=== PATIENT | male | born 1970 | race African-American/Black ===

== ENCOUNTER 2019-06-29 02:45 | Inpatient (IN) | payer OTHER ==
--- NOTE | 2019-06-29 02:55 | PDOC ---
History of Present Illness - General Stated Complaint: CHILLS,PAIN Time Seen by Provider: 06/29/19 02:54 History Source: Patient Exam Limitations: No Limitations - History of Present Illness Initial Comments: Pt is a 48 yo M, with no significant PMH, who presents with subjective fever, generalized fatigue, productive cough, and sore throat. Pt states his symptoms started ~1 week ago after returning from vacation in [place], and his symptoms have worsened, despite OTC medications (tylenol, motrin, advil cold/ sinus). Pt also endorses a few episodes of NBNB vomiting throughout the week with associated anorexia. Pt denies any new sexual contacts. Pt denies neck stiffness, photophobia, insect bites, headache, vision changes, syncope, chest pain, palpitations, SOB, abdominal pain, urinary symptoms, diarrhea/constipation , or leg swelling. Allergies: NKDA PCP: None Social: Pt denies any cigarette, alcohol, or drug use. Pt denies any sick contacts. No international travel. Surgical: no relevant history. Family: no relevant history. 06/29/19 06:55 07/02/19 08:04 Past History - Travel Traveled outside of the country in the last 30 days: No Close contact w/someone who was outside of country & ill: No - Past Medical History Allergies/Adverse Reactions: Allergies Allergy/AdvReac Type Severity Reaction Status Date / Time No Known Allergies Allergy Verified 06/29/19 06:18 Home Medications: Ambulatory Orders NK [No Known Home Medication] 06/29/19 Review of Systems - Review of Systems Able to Perform ROS?: Yes Is the patient limited Ivorian proficient: No Constitutional: Yes: Chills, Diaphoresis, Fever, Loss of Appetite, Malaise, Weight Stable. No: Night Sweats, Weakness HEENTM: Yes: Throat Pain. No: Blurred Vision, Double Vision, Nose Congestion, Throat Swelling, Difficulty Swallowing Respiratory: Yes: Cough, Shortness of Breath, SOB with Exertion, SOB at Rest. No: Orthopnea, Wheezing, Productive cough, Hemoptysis Cardiac (ROS): No: Chest Pain, Edema, Irregular Heart Rate, Lightheadedness, Palpitations, Syncope, Chest Tightness ABD/GI: Yes: Nausea, Poor Appetite, Vomiting. No: Constipated, Diarrhea, Poor Fluid Intake, Abdominal cramping : No: Burning, Dysuria, Frequency, Pain, Urgency, Testicular Pain Musculoskeletal: Yes: Muscle Pain. No: Back Pain, Joint Pain, Muscle Weakness Integumentary: No: Change in Color, Rash Neurological: No: Headache, Weakness, Unsteady Gait, Dizziness Psychiatric: No: Sleep Pattern Change, Change in Appetite Endocrine: No: Increased Urine, Change in Weight Hematologic/Lymphatic: No: Anemia, Blood Clots, Easy Bleeding, Easy Bruising All Other Systems: Reviewed and Negative *Physical Exam - Physical Exam Comments: Febrile, tachycardic. Pt sounds out of breath when speaking in full sentences and moving on the bed. Appears diaphoretic and ill. Obese body habitus. Pt alert and oriented x3. supervisor lime generally intact, muscular strength and sensation intact. No midline spinal tenderness, step-offs, or crepitus. No neck stiffness or tenderness with neck movements. Head normocephalic, atraumatic. Eyes PERRLA, EOMI. Does not withdraw from light source. Oropharynx with significant erythema, tonsillar edema, and b/l exudates. No LAD b/l. No nasal congestion, hearing intact. Clear heart sounds, S1/S2, no JVD, b/l pedal edema, or heart murmur. Clear lung sounds, no respiratory distress, wheezes, crackles, or accessory muscle use. No abdominal or CVA tenderness to palpation, no rebound, no guarding. Abdomen soft, non-distended, and with normoactive bowel sounds. Skin without jaundice or rash. 06/29/19 06:32 ED Treatment Course - LABORATORY CBC & Chemistry Diagram: 07/01/19 07:40 07/02/19 06:00 Medical Decision Making - Medical Decision Making Pt was seen at bedside, also will be seen by attending Dr. Pearl. Pt presenting with fever, tachycardia, dry cough, anorexia, fatigue, and throat pain x1 week after traveling to [place]. Pt denies new sexual contacts, but has some symptoms consistent with acute HIV infection. Throat exudates could be thrush vs strep. Will evaluate with sepsis w/u labs, EKG, chest x-ray. Rapid strep, influenza, and HIV tests ordered. Provided 2 L IV NS, IV ofirmev. Will continue to reassess pt and monitor for symptomatic improvement. ECG: Sinus tachycardia. No TWIs or significant ST segment changes. No prior ECG. 06/29/19 06:33 CBC WNL CMP with elevated BUN/Cr and LFTs -- hepatitis vs fatty liver? Providing IVF. Strep positive Chest x-ray with L lower pneumonia -- providing ceftriaxone and azithromycin to cover for strep and pneumonia Pt admitted to hospitalist team (Dr. Walker) for further work-up and IV abx Pt continues to desaturate to low 90s% when speaking in full sentences, even when on 3L O2 NC. 06/29/19 06:36 07/02/19 08:07 *DC/Admit/Observation/Transfer Diagnosis at time of Disposition: Strep throat, Hypoxia Left lower lobe pneumonia Qualifiers: Pneumonia type: due to unspecified organism Qualified Code(s): J18.1 - Lobar pneumonia, unspecified organism - Discharge Dispostion Condition at time of disposition: Stable Decision to Admit order: Yes - Referrals - Patient Instructions - Post Discharge Activity
[2019-06-29 03:16] VITALS: BMI 31.8
--- NOTE | 2019-06-29 03:24 | PDOC ---
Attending Attestation - Resident Resident Name: BreonnaCady - ED Attending Attestation I have performed the following: I have examined & evaluated the patient, The case was reviewed & discussed with the resident, I agree w/resident's findings & plan, Exceptions are as noted - HPI HPI: 06/29/19 07:23 48M denies pmh here with a week of f/c body aches, sore throat. No coughing, sob, chest pain. - Physicial Exam PE: 06/29/19 07:24 Agree with details of exam as documented by resident L sided crackles - Medical Decision Making 06/29/19 07:24 48M here with febrile illness, consider pharyngitis, consider pna f/u labs, cxr, ekg ANGELA +strep pharyngitis +L sided infiltrate admit for treatment
[2019-06-29] MEDS ORDERED: ACETAMINOPHEN 1000 MG/100 ML VIAL (NON FORMULARY) IVPB ONE (04:11)
[2019-06-29] MEDS ORDERED: SODIUM CHLORIDE 1,000 ML IV STA ×2 (04:12→05:16)
[2019-06-29] MEDS ORDERED: ACETAMINOPHEN INJECTION 100 ML IVPB ONE (04:21)
[2019-06-29 04:51] LABS: BASO % 0.1 % (0-2.0); EOS % 0.1 % (0-4.5); HEMATOCRIT 43.6 % (35.4-49); HEMOGLOBIN 14.8 GM/dL (11.7-16.9); LYMPH % 13.3 % (8-40); MCH 28.6 pg (25.7-33.7); MCHC 34.1 g/dl (32.0-35.9); MEAN PLT VOLUME 10.2 fl (7.5-11.1); MONO % 12.2 % (3.8-10.2); NEUT % 74.3 % (42.8-82.8); PLATELET COUNT 139 K/MM3 (134-434); RBC 5.19 M/mm3 (4.00-5.60); RDW 14.1 % (11.9-15.9); WHITE BLOOD COUNT 7.2 K/mm3 (4.0-10.0)
[2019-06-29 04:57] LABS: EPI CELLS 2.1 /HPF (0-5/HPF); HYALINE CASTS 18 /lpf (0-8); URINE APPEARANCE CLOUDY; URINE BACTERIA 1.2 /hpf (NEGATIVE); URINE BILIRUBIN 1+ (NEGATIVE); URINE COLOR DK YELLOW; URINE GLUCOSE (UA) NEGATIVE (NEGATIVE); URINE KETONE NEGATIVE (NEGATIVE); URINE LEUK ESTERASE NEGATIVE (NEGATIVE); URINE NITRITE NEGATIVE (NEGATIVE); URINE PROTEIN 1+ (NEGATIVE); URINE WBC 3 /hpf (0-5)
[2019-06-29 05:06] LABS: URINE RBC 3.6 /hpf (0-4)
[2019-06-29 05:13] LABS: ALBUMIN 3.2 g/dl (3.4-5.0); BILIRUBIN,TOTAL 2.2 mg/dL (0.2-1); CREATININE 2.1 mg/dL (0.55-1.3); POTASSIUM 4.6 mmol/L (3.5-5.1); TOT PROT 7.8 g/dl (6.4-8.2)
[2019-06-29] MEDS ORDERED: AZITHROMYCIN IVPB 500 MG in DEXTROSE 5%-WATER - 250 ML IVPB ONE (05:15)
[2019-06-29] MEDS ORDERED: CEFTRIAXONE 1,000 MG in DEXTROSE 5%-WATER - 50 ML IVPB ONE (05:15)
[2019-06-29] MEDS ORDERED: AZITHROMYCIN IVPB 500 MG/250 ML BAG IVPB ONE (05:18)
--- NOTE | 2019-06-29 06:02 | HP ---
CHIEF COMPLAINT: fever, body aches, and chills PCP: saw a Dr. Mesa 2 years ago, unsure which one HISTORY OF PRESENT ILLNESS: Patient is a 48 y/o male with no past medical history who presents for a week of chills, fevers, and body aches. Patient was recently at [place] for work when he returned last . Since then He has been having symptoms. He has been trying to rest, but it has not made him feel better. He denies any past medical history or everyday medication use. Patient denies any coughing, sputum production, chest pain, or difficulty breathing. Patient denies any recent sick contacts. Patient works as a DJ. Patient reports he has two small episodes of vomiting throughout the week without blood. He has been having poor po and oral intake. Patient was sexually active a month and a half ago and is active with women. Denies any past history of STD's. ER course was notable for: (1)Cef, Azithromycin (2) (3) Recent Travel: [place] last week PAST MEDICAL HISTORY: denies PAST SURGICAL HISTORY: R hand surgery Social History: Smoking: never Alcohol: socially, two beers a week Drugs: denies Family History: mother: diabetes, father: HTN Allergies No Known Allergies Allergy (Verified 06/29/19 03:10) HOME MEDICATIONS: REVIEW OF SYSTEMS CONSTITUTIONAL: fever, chills, generalized weakness Absent: diaphoresis,malaise, loss of appetite, weight change HEENT: Absent: rhinorrhea, nasal congestion, throat pain, throat swelling, difficulty swallowing, mouth swelling, ear pain, eye pain, visual changes CARDIOVASCULAR: Absent: chest pain, syncope, palpitations, irregular heart rate, lightheadedness , peripheral edema RESPIRATORY: Absent: cough, shortness of breath, dyspnea with exertion, orthopnea, wheezing, stridor, hemoptysis GASTROINTESTINAL: Absent: abdominal pain, abdominal distension, nausea, vomiting, diarrhea, constipation, melena, hematochezia GENITOURINARY: Absent: dysuria, frequency, urgency, hesitancy, hematuria, flank pain, genital pain MUSCULOSKELETAL: Absent: myalgia, arthralgia, joint swelling, back pain, neck pain SKIN: Absent: rash, itching, pallor HEMATOLOGIC/IMMUNOLOGIC: Absent: easy bleeding, easy bruising, lymphadenopathy, frequent infections ENDOCRINE: Absent: unexplained weight gain, unexplained weight loss, heat intolerance, cold intolerance NEUROLOGIC: Absent: headache, focal weakness or paresthesias, dizziness, unsteady gait, seizure, mental status changes, bladder or bowel incontinence PSYCHIATRIC: Absent: anxiety, depression, suicidal or homicidal ideation, hallucinations. PHYSICAL EXAMINATION Vital Signs - 24 hr 06/29/19 06/29/19 06/29/19 02:58 03:05 05:30 Temperature 102.8 F H 98 F Pulse Rate 111 H Respiratory 18 Rate Blood Pressure 113/66 O2 Sat by Pulse 93 L 95 Oximetry (%) GENERAL: Awake, alert, and fully oriented, in no acute distress. Obese male HEAD: Normal with no signs of trauma. EYES: Pupils equal, round and reactive to light, extraocular movements intact, R eye deviation at baseline EARS, NOSE, THROAT: multiple white exudates on pharynx LUNGS: no accessory muscle use, crackles left side HEART: Regular rate and rhythm, normal S1 and S2 without murmur, rub or gallop. ABDOMEN: Soft, nontender, not distended, normoactive bowel sounds, no guarding, no rebound, no masses. Negative [place] sign MUSCULOSKELETAL: Normal range of motion at all joints. No bony deformities or tenderness. No CVA tenderness. LOWER EXTREMITIES: 2+ pulses, warm, well-perfused. No calf tenderness. No peripheral edema. SKIN: Warm, dry, normal turgor, no rashes or lesions noted, normal capillary refill. CBC, BMP 06/29/19 04:00 06/29/19 04:00 ASSESSMENT/PLAN: Patient is a 48 y/o male with no past medical history who presents for a week of chills, fevers, and body aches. #Pneumonia - positive Group A strep - Pneumonia seen on CXR, LLL - Ceftriaxone and Azithromycin given once in ED - repeat temp afebrile - received 2 L, will continue maintenance fluids for slight hypotension and ANGELA - f/u sputum cx, blood cx, urine pneumonia antigens, ESR, CRP for inflammation - f/u respiratory viral panel, influenza negative - avoid tylenol for fever - f/u LA, if positive patient meets Sepsis criteria #elevated transaminitis - unclear source, denies alcohol history, with BMI 31 likely fatty liver - f/u US - f/u hepatitis panel - f/u fractionated bili with elevated T bili # ANGELA - likely in setting of infection and dehydration - f/u FeNA, UA with 1+ protein - continue fluids #DVT ppx - Lovenox 40 sq daily FEN - regular diet - NS @ 100 Dispo: monitor on med surg, patient will likely need better follow up with PCP as an outpatient, can refer to resident clinic Visit type - Emergency Visit Emergency Visit: Yes ED Registration Date: 06/29/19 Care time: The patient presented to the Emergency Department on the above date and was hospitalized for further evaluation of their emergent condition. - New Patient This patient is new to me today: Yes Date on this admission: 07/01/19 - Critical Care Critical Care patient: No ATTENDING PHYSICIAN STATEMENT I saw and evaluated the patient. I reviewed the resident's note and discussed the case with the resident. I agree with the resident's findings and plan as documented. SUBJECTIVE: OBJECTIVE: ASSESSMENT AND PLAN:
[2019-06-29] MEDS: SODIUM CHLORIDE 1,000 ML IV SCH (06:48)
--- NOTE | 2019-06-29 06:54 | PN ---
Teaching Attending Note Name of Resident: Cherry Guardado ATTENDING PHYSICIAN STATEMENT I saw and evaluated the patient. I reviewed the resident's note and discussed the case with the resident. I agree with the resident's findings and plan as documented. Seen and examined; please refer to resident note for further historical information. Briefly, this is a 48 y/o male presenting with +Group A strep throat as well as apparent L-sided CAP. Pneumonia studies pending; hemodynamically stable. Final imaging reads pending at the time of admission. Does have some malaise, constitutional sx. Nothing makes better or worse. VS, labs, imaging reviewed NAD, AAO, resting in bed NC AT EOMI PERRLA RRR to slightly tachy, s1/2 Lungs mostly CTAB (? rales lower), w/ sym exp NT ND +BS CN2-12 wnl, no fnd. Poor dentition EKG reviewed CXR reviewed ASSESSMENT AND PLAN: Patient presents to the ER with CAP; r/o legionella/pneumococcus, followup cultures, hemodynamics stable. Test for immunodeficiencies. Investigate causes of pneumonia in 48 y/o male with no documented pulmonary issues or immunodeficiencies # CAP # At risk for HIV # Obesity # Group A strep + # Transaminitis # ANGELA vs. CKD For full delineation of plan please see resident note as well as orders.
[2019-06-29 09:34] LABS: URINE APPEARANCE CLOUDY; URINE BILIRUBIN NEGATIVE (NEGATIVE); URINE COLOR DK YELLOW; URINE GLUCOSE (UA) NEGATIVE (NEGATIVE); URINE KETONE NEGATIVE (NEGATIVE); URINE LEUK ESTERASE NEGATIVE (NEGATIVE); URINE NITRITE NEGATIVE (NEGATIVE); URINE PROTEIN 30 (NEGATIVE)
[2019-06-29 09:35] LABS: BASO % 0.2 % (0-2.0); EOS % 0.1 % (0-4.5); HEMATOCRIT 32.9 % (35.4-49); HEMOGLOBIN 11.3 GM/dL (11.7-16.9); LYMPH % 12.6 % (8-40); MCH 28.9 pg (25.7-33.7); MCHC 34.3 g/dl (32.0-35.9); MEAN CELL VOLUME 84.3 fl (80-96); MEAN PLT VOLUME 10.4 fl (7.5-11.1); MONO % 12.7 % (3.8-10.2); NEUT % 74.4 % (42.8-82.8); PLATELET COUNT 120 K/MM3 (134-434); RBC 3.91 M/mm3 (4.00-5.60); RDW 13.9 % (11.9-15.9); WHITE BLOOD COUNT 7.9 K/mm3 (4.0-10.0)
[2019-06-29 09:54] LABS: ALBUMIN 2.4 g/dl (3.4-5.0); BILIRUBIN,DIRECT 0.7 mg/dL (0.0-0.2); BILIRUBIN,TOTAL 1.4 mg/dL (0.2-1); CALCIUM 7.6 mg/dL (8.5-10.1); CREATININE 1.8 mg/dL (0.55-1.3); MAGNESIUM 2.5 mg/dL (1.8-2.4); POTASSIUM 4.6 mmol/L (3.5-5.1)
[2019-06-29 09:56] LABS: ERYTHROCYTE SEDIMENTATION RATE 83 mm/hr (0-10)
--- NOTE | 2019-06-29 11:45 | EKG ---
Test Reason : Blood Pressure : / mmHG Vent. Rate : 088 BPM Atrial Rate : 088 BPM P-R Int : 150 ms QRS Dur : 086 ms QT Int : 320 ms P-R-T Axes : 045 -23 018 degrees QTc Int : 387 ms POOR DATA QUALITY, INTERPRETATION MAY BE ADVERSELY AFFECTED NORMAL SINUS RHYTHM NORMAL ECG NO PREVIOUS ECGS AVAILABLE Confirmed by TENZIN KIMBALL, REY ([id number]) on 06/29/2019 11:44:33 AM Referred By: Confirmed By:REY DAVE MD
[2019-06-29] MEDS: ENOXAPARIN NA (PORCINE) 40 MG/0.4 ML DISP.SYRIN SQ SCH (11:56)
--- NOTE | 2019-06-29 15:17 | PN ---
Physical Exam: SUBJECTIVE: Patient seen and examined. He says he is feeling better. OBJECTIVE: Vital Signs Period Temp Pulse Resp BP Sys/Thakkar Pulse Ox Last 24 Hr 98 F-102.8 F 76-111 18-20 92-113/52-71 93-99 GENERAL: The patient is awake, alert, and fully oriented, in no acute distress. LUNGS: Breath sounds equal, crackles on left, no wheezes, no accessory muscle use. HEART: Regular rate and rhythm, S1, S2 without murmur, rub or gallop. ABDOMEN: Soft, nontender, nondistended, normoactive bowel sounds, no guarding, no rebound, no hepatosplenomegaly, no masses. EXTREMITIES: 2+ pulses, warm, well-perfused, no edema. Laboratory Results - last 24 hr 06/29/19 06/29/19 06/29/19 03:20 03:20 03:55 WBC RBC Hgb Hct MCV MCH MCHC RDW Plt Count MPV Absolute Neuts (auto) Neutrophils % Lymphocytes % Monocytes % Eosinophils % Basophils % Nucleated RBC % ESR PTT (Actin FS) Sodium Potassium Chloride Carbon Dioxide Anion Gap BUN Creatinine Est GFR (CKD-EPI)AfAm Est GFR (CKD-EPI)NonAf Random Glucose Lactic Acid Calcium Phosphorus Magnesium Total Bilirubin Direct Bilirubin AST ALT Alkaline Phosphatase C-Reactive Protein Total Protein Albumin Urine Color Dk yellow Urine Appearance Cloudy Urine pH 5.0 Ur Specific [place] 1.015 Urine Protein 1+ H Urine Glucose (UA) Negative Urine Ketones Negative Urine Blood 1+ H Urine Nitrite Negative Urine Bilirubin 1+ H Urine Urobilinogen 1.0 Ur Leukocyte Esterase Negative Urine WBC (Auto) 3 Urine RBC (Auto) 3.6 Urine Casts (Auto) 18 U Pathogenic Cast Auto None seen U Epithel Cells (Auto) 2.1 Urine Bacteria (Auto) 1.2 Ur Random Sodium HIV 1&2 Antibody Screen HIV P24 Antigen Influenza A (Rapid) Negative Influenza B (Rapid) Negative Group A Strep Rapid Positive 06/29/19 06/29/19 06/29/19 04:00 04:00 04:00 WBC 7.2 RBC 5.19 Hgb 14.8 Hct 43.6 MCV 84.0 MCH 28.6 MCHC 34.1 RDW 14.1 Plt Count 139 MPV 10.2 Absolute Neuts (auto) 5.3 Neutrophils % 74.3 Lymphocytes % 13.3 Monocytes % 12.2 H Eosinophils % 0.1 Basophils % 0.1 Nucleated RBC % 0 ESR PTT (Actin FS) 28.3 Sodium 134 L Potassium 4.6 Chloride 97 L Carbon Dioxide 26 Anion Gap 10 BUN 34.0 H Creatinine 2.1 H Est GFR (CKD-EPI)AfAm 41.88 Est GFR (CKD-EPI)NonAf 36.13 Random Glucose 129 H Lactic Acid Calcium 9.0 Phosphorus Magnesium Total Bilirubin 2.2 H Direct Bilirubin AST 166 H ALT 218 H Alkaline Phosphatase 88 C-Reactive Protein Total Protein 7.8 Albumin 3.2 L Urine Color Urine Appearance Urine pH Ur Specific [place] Urine Protein Urine Glucose (UA) Urine Ketones Urine Blood Urine Nitrite Urine Bilirubin Urine Urobilinogen Ur Leukocyte Esterase Urine WBC (Auto) Urine RBC (Auto) Urine Casts (Auto) U Pathogenic Cast Auto U Epithel Cells (Auto) Urine Bacteria (Auto) Ur Random Sodium HIV 1&2 Antibody Screen HIV P24 Antigen Influenza A (Rapid) Influenza B (Rapid) Group A Strep Rapid 06/29/19 06/29/19 06/29/19 04:00 04:00 06:10 WBC RBC Hgb Hct MCV MCH MCHC RDW Plt Count MPV Absolute Neuts (auto) Neutrophils % Lymphocytes % Monocytes % Eosinophils % Basophils % Nucleated RBC % ESR PTT (Actin FS) Sodium Potassium Chloride Carbon Dioxide Anion Gap BUN Creatinine Est GFR (CKD-EPI)AfAm Est GFR (CKD-EPI)NonAf Random Glucose Lactic Acid 1.9 Calcium Phosphorus Magnesium Total Bilirubin Direct Bilirubin AST ALT Alkaline Phosphatase C-Reactive Protein Total Protein Albumin Urine Color Dk yellow Urine Appearance Cloudy Urine pH 5.0 Ur Specific [place] 1.016 Urine Protein 30 Urine Glucose (UA) Negative Urine Ketones Negative Urine Blood 1+ H Urine Nitrite Negative Urine Bilirubin Negative Urine Urobilinogen 1.0 Ur Leukocyte Esterase Negative Urine WBC (Auto) Urine RBC (Auto) Urine Casts (Auto) U Pathogenic Cast Auto U Epithel Cells (Auto) Urine Bacteria (Auto) Ur Random Sodium HIV 1&2 Antibody Screen Cancelled HIV P24 Antigen Cancelled Influenza A (Rapid) Influenza B (Rapid) Group A Strep Rapid 06/29/19 06/29/19 06/29/19 06:10 09:02 09:02 WBC 7.9 RBC 3.91 L Hgb 11.3 L Hct 32.9 L D MCV 84.3 MCH 28.9 MCHC 34.3 RDW 13.9 Plt Count 120 L MPV 10.4 Absolute Neuts (auto) 5.9 Neutrophils % 74.4 Lymphocytes % 12.6 Monocytes % 12.7 H Eosinophils % 0.1 Basophils % 0.2 Nucleated RBC % 0 ESR 83 H PTT (Actin FS) Sodium 137 Potassium 4.6 Chloride 104 Carbon Dioxide 27 Anion Gap 6 L BUN 30.0 H Creatinine 1.8 H Est GFR (CKD-EPI)AfAm 50.46 Est GFR (CKD-EPI)NonAf 43.54 Random Glucose 127 H Lactic Acid Calcium 7.6 L Phosphorus 4.0 Magnesium 2.5 H Total Bilirubin 1.4 H Direct Bilirubin 0.7 H AST 123 H ALT 158 H Alkaline Phosphatase 65 C-Reactive Protein 11.5 H Total Protein 6.0 L Albumin 2.4 L Urine Color Urine Appearance Urine pH Ur Specific [place] Urine Protein Urine Glucose (UA) Urine Ketones Urine Blood Urine Nitrite Urine Bilirubin Urine Urobilinogen Ur Leukocyte Esterase Urine WBC (Auto) Urine RBC (Auto) Urine Casts (Auto) U Pathogenic Cast Auto U Epithel Cells (Auto) Urine Bacteria (Auto) Ur Random Sodium 11 L HIV 1&2 Antibody Screen HIV P24 Antigen Influenza A (Rapid) Influenza B (Rapid) Group A Strep Rapid Active Medications Generic Name Dose Route Start Last Admin Trade Name Freq PRN Reason Stop Dose Admin Enoxaparin Sodium 40 mg 06/29/19 10:00 06/29/19 11:56 Lovenox - SQ 40 mg DAILY ELIDA Administration Sodium Chloride 1,000 mls @ 100 mls/hr 06/29/19 06:15 06/29/19 06:48 Normal Saline - IV 100 mls/hr ASDIR ELIDA Administration ASSESSMENT/PLAN: This is a 48 year old man with no past medical history who presented to the ED with fever, chills, and body aches. 1. Sepsis (leukocytosis, fever) secondary to Legionella pneumonia and group A Strep pharyngitis - Continue ceftriaxone, azithromycin - Continue IV fluid - Pulmonary, ID consults 2. Hepatic transaminitis secondary to Legionella pneumonia - Monitor LFTs - HIV, hepatitis panel pending 3. Acute kidney injury secondary to dehydration - Improving - Continue IV fluid Visit type - Emergency Visit Emergency Visit: Yes ED Registration Date: 06/29/19 Care time: The patient presented to the Emergency Department on the above date and was hospitalized for further evaluation of their emergent condition. - New Patient This patient is new to me today: Yes Date on this admission: 06/29/19 - Critical Care Critical Care patient: No - Discharge Referral Referred to [facility] No
--- NOTE | 2019-06-29 15:46 | PN ---
Progress Note (short form) - Note Progress Note: PULMONARY CONSULTATION DICTATED 06/29/19 IMP LEFT LUNG PNEUMONIA LEGIONELLA STREP PHARYNGITIS ANGELA ELEVATED LFTS ANEMIA PLAN IV ABX IVF INHALED BRONCHODILATORS O2 CULTURES CHEST CT MONITOR LYTES.RENAL FUNCTION,H+H CPK F/U CHEST X-RAY DR SANCHEZ Problem List - Problems (1) Legionella pneumonia Code(s): A48.1 - LEGIONNAIRES' DISEASE (2) Left lower lobe pneumonia Code(s): J18.1 - LOBAR PNEUMONIA, UNSPECIFIED ORGANISM Qualifiers: Pneumonia type: due to unspecified organism Qualified Code(s): J18.1 - Lobar pneumonia, unspecified organism (3) Strep throat Code(s): J02.0 - STREPTOCOCCAL PHARYNGITIS (4) Streptococcal pneumonia Code(s): J15.4 - PNEUMONIA DUE TO OTHER STREPTOCOCCI (5) Acute kidney injury Code(s): N17.9 - ACUTE KIDNEY FAILURE, UNSPECIFIED (6) Anemia Code(s): D64.9 - ANEMIA, UNSPECIFIED
--- NOTE | 2019-06-29 16:55 | CONS ---
DATE OF CONSULTATION: 06/29/2019 PULMONARY CONSULTATION REFERRING PHYSICIAN: Michale Davis M.D. HISTORY OF PRESENT ILLNESS: The patient is a 48-year-old male without any significant past medical history, nonsmoker admitted to [facility] with complaint of 1-week history of fevers, chills, and generalized body aches. The patient recently went to [place] for a convention. At the time of the convention, he returned last . Since that time, he has developed a sore throat, generalized weakness, a couple episodes of vomiting, no diarrhea, as well as nonproductive cough. He also states he has some chills and subjective fevers. Denied any hemoptysis. Denied any chest pains or palpitations or shortness of breath. There is no history of family illness. No recent history of sick contacts. There is no history of occupational exposures. Patient's symptoms continued to worsen, which symptoms continued, at which time he presented to the emergency room. In the ER, he had chest x-ray performed which revealed left lung infiltrate. He also had serology performed and which was legionella positive as well as group A rapid strep was positive. He was placed on broad-spectrum antibiotics. Patient denies any history of pneumonia. There is no history of DVT or PE in the past. There is no history of fevers, weight loss, or night sweats. PAST MEDICAL HISTORY: Again, is unremarkable. REVIEW OF SYSTEMS: Positive weakness, positive sore throat, positive dry cough, positive chills, positive subjective fevers. No chest pain, no palpitations, no shortness of breath. Positive a couple episodes of nausea and vomiting. No diarrhea, no abdominal pain. CURRENT MEDICATIONS: Include Zithromax, ceftriaxone, Lovenox, and normal saline. PHYSICAL EXAMINATION: General: The patient is a well-developed and nourished male, awake, alert, in no acute distress. He is afebrile. Vital Signs: Blood pressure 102/64, respiratory rate 19, and O2 saturation is 99% on 2 L nasal cannula. HEENT: Normocephalic, atraumatic. Neck: Supple. Heart: Regular S1, S2. Chest: Clear. Abdomen: Soft, bowel sounds positive. Extremities: No cyanosis, edema. LABORATORY: WBC is 7.9, hemoglobin 11.3, hematocrit 32.9 with platelet count of 120,000. Of note is initial WBC was 7.2, initial hemoglobin 14.8 and initial hematocrit was 43.6. Chemistries: BUN 30, creatinine 1.8. Initial BUN is 34, creatinine 2.1. Calcium 7.6, bilirubin is 1.4, magnesium 2.5, AST 123, ALT 158 , CRP is 11.5. Chest x-ray reveals left lung infiltrate. IMPRESSION: 1. Pneumonia, left lung pneumonia, positive legionella serology. 2. Strep Pharyngitis 3. Acute kidney injury. 4. Elevated liver function tests. 5. Anemia. PLAN: IV antibiotics, IV fluids, inhaled bronchodilators, supplemental O2, obtain cultures, CT scan of chest. Monitor electrolytes, renal functions, hemoglobin and hematocrit ,CPK and follow up chest x-rays. WES SANCHEZ M.D. DAISY/[id number] MTDD
--- NOTE | 2019-06-29 18:32 | PN ---
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
[2019-06-29] MEDS ORDERED: ACETAMINOPHEN 325 MG TABLET (FP) ONE (19:26)
[2019-06-29] MEDS: ACETAMINOPHEN 325 MG TABLET (FP) PO PRN (19:30)
[2019-06-30] MEDS: ACETAMINOPHEN 325 MG TABLET (FP) PO PRN ×2 (06:04→14:14)
[2019-06-30] MEDS: SODIUM CHLORIDE 1,000 ML IV SCH (06:08)
[2019-06-30 07:52] LABS: BASO % 0.6 % (0-2.0); HEMOGLOBIN 11.7 GM/dL (11.7-16.9); LYMPH % 16.4 % (8-40); MCH 28.8 pg (25.7-33.7); MCHC 34.3 g/dl (32.0-35.9); MEAN CELL VOLUME 83.8 fl (80-96); MEAN PLT VOLUME 9.7 fl (7.5-11.1); MONO % 9.3 % (3.8-10.2); NEUT % 72.7 % (42.8-82.8); PLATELET COUNT 138 K/MM3 (134-434); RBC 4.06 M/mm3 (4.00-5.60); RDW 13.8 % (11.9-15.9); WHITE BLOOD COUNT 6.1 K/mm3 (4.0-10.0)
[2019-06-30] MEDS ORDERED: DEXTROSE 5%-WATER - 50 ML IVPB ONE (08:51)
[2019-06-30] MEDS ORDERED: cefTRIAXone SODIUM 1 GM VIAL ONE (08:51)
[2019-06-30 08:52] LABS: ALBUMIN 2.5 g/dl (3.4-5.0); ALK PHOS 66 U/L (45-117); ANION GAP 9 MMOL/L (8-16); BILIRUBIN,TOTAL 1.3 mg/dL (0.2-1); BLOOD UREA NITROGEN 22.4 mg/dL (7-18); CALCIUM 8.1 mg/dL (8.5-10.1); CHLORIDE 105 mmol/L (98-107); CO2 23 mmol/L (21-32); CREATININE 1.4 mg/dL (0.55-1.3); GLUCOSE,RANDOM 109 mg/dL (74-106); POTASSIUM 4.4 mmol/L (3.5-5.1); SGOT/AST 108 U/L (15-37); SGPT/ALT 132 U/L (13-61); SODIUM 136 mmol/L (136-145); TOT PROT 6.2 g/dl (6.4-8.2)
--- NOTE | 2019-06-30 09:06 | PN ---
Physical Exam: SUBJECTIVE: Patient seen and examined. He is still having fevers and chills. He denies cough, SOB, nausea, vomiting, diarrhea. OBJECTIVE: Vital Signs Period Temp Pulse Resp BP Sys/Thakkar Pulse Ox Last 24 Hr 98.4 F-103.1 F 76-91 - 102-116/49-78 95-97 GENERAL: The patient is awake, alert, and fully oriented, in no acute distress. LUNGS: Breath sounds equal, clear to auscultation bilaterally, no wheezes, no crackles, no accessory muscle use. HEART: Regular rate and rhythm, S1, S2 without murmur, rub or gallop. ABDOMEN: Soft, nontender, nondistended, normoactive bowel sounds, no guarding, no rebound, no hepatosplenomegaly, no masses. EXTREMITIES: 2+ pulses, warm, well-perfused, no edema. Laboratory Results - last 24 hr 06/29/19 06/29/19 06/29/19 04:00 06:10 09:02 WBC 7.9 RBC 3.91 L Hgb 11.3 L Hct 32.9 L D MCV 84.3 MCH 28.9 MCHC 34.3 RDW 13.9 Plt Count 120 L MPV 10.4 Absolute Neuts (auto) 5.9 Neutrophils % 74.4 Lymphocytes % 12.6 Monocytes % 12.7 H Eosinophils % 0.1 Basophils % 0.2 Nucleated RBC % 0 ESR 83 H Sodium Potassium Chloride Carbon Dioxide Anion Gap BUN Creatinine Est GFR (CKD-EPI)AfAm Est GFR (CKD-EPI)NonAf Random Glucose Lactic Acid Calcium Phosphorus Magnesium Total Bilirubin Direct Bilirubin AST ALT Alkaline Phosphatase Creatine Kinase Creatine Kinase Index CK-MB (CK-2) C-Reactive Protein Total Protein Albumin Urine Color Dk yellow Urine Appearance Cloudy Urine pH 5.0 Ur Specific [place] 1.016 Urine Protein 30 Urine Glucose (UA) Negative Urine Ketones Negative Urine Blood 1+ H Urine Nitrite Negative Urine Bilirubin Negative Urine Urobilinogen 1.0 Ur Leukocyte Esterase Negative Hep A IgM Ab Confirm Hep Bs Antigen Hep B Core IgM Ab Hepatitis C Ab (EIA) HIV 1&2 Ag/Ab, 4th Gen HIV 1&2 Antibody Screen Cancelled HIV P24 Antigen Cancelled 06/29/19 06/29/19 06/29/19 09:02 09:02 10:00 WBC RBC Hgb Hct MCV MCH MCHC RDW Plt Count MPV Absolute Neuts (auto) Neutrophils % Lymphocytes % Monocytes % Eosinophils % Basophils % Nucleated RBC % ESR Sodium 137 Potassium 4.6 Chloride 104 Carbon Dioxide 27 Anion Gap 6 L BUN 30.0 H Creatinine 1.8 H Est GFR (CKD-EPI)AfAm 50.46 Est GFR (CKD-EPI)NonAf 43.54 Random Glucose 127 H Lactic Acid Calcium 7.6 L Phosphorus 4.0 Magnesium 2.5 H Total Bilirubin 1.4 H Direct Bilirubin 0.7 H AST 123 H ALT 158 H Alkaline Phosphatase 65 Creatine Kinase Creatine Kinase Index CK-MB (CK-2) C-Reactive Protein 11.5 H Total Protein 6.0 L Albumin 2.4 L Urine Color Urine Appearance Urine pH Ur Specific [place] Urine Protein Urine Glucose (UA) Urine Ketones Urine Blood Urine Nitrite Urine Bilirubin Urine Urobilinogen Ur Leukocyte Esterase Hep A IgM Ab Confirm Negative Hep Bs Antigen Negative Hep B Core IgM Ab Negative Hepatitis C Ab (EIA) 0.1 HIV 1&2 Ag/Ab, 4th Gen Non reactive HIV 1&2 Antibody Screen HIV P24 Antigen 06/29/19 06/29/19 06/30/19 20:05 20:14 06:45 WBC 6.1 RBC 4.06 Hgb 11.7 Hct 34.0 L MCV 83.8 MCH 28.8 MCHC 34.3 RDW 13.8 Plt Count 138 MPV 9.7 Absolute Neuts (auto) 4.4 Neutrophils % 72.7 Lymphocytes % 16.4 D Monocytes % 9.3 Eosinophils % 1.0 D Basophils % 0.6 Nucleated RBC % 0 ESR Sodium Potassium Chloride Carbon Dioxide Anion Gap BUN Creatinine Est GFR (CKD-EPI)AfAm Est GFR (CKD-EPI)NonAf Random Glucose Lactic Acid 1.2 Calcium Phosphorus Magnesium Total Bilirubin Direct Bilirubin AST ALT Alkaline Phosphatase Creatine Kinase 2014 H Creatine Kinase Index 0.0 CK-MB (CK-2) 1.2 C-Reactive Protein Total Protein Albumin Urine Color Urine Appearance Urine pH Ur Specific [place] Urine Protein Urine Glucose (UA) Urine Ketones Urine Blood Urine Nitrite Urine Bilirubin Urine Urobilinogen Ur Leukocyte Esterase Hep A IgM Ab Confirm Hep Bs Antigen Hep B Core IgM Ab Hepatitis C Ab (EIA) HIV 1&2 Ag/Ab, 4th Gen HIV 1&2 Antibody Screen HIV P24 Antigen 06/30/19 06:45 WBC RBC Hgb Hct MCV MCH MCHC RDW Plt Count MPV Absolute Neuts (auto) Neutrophils % Lymphocytes % Monocytes % Eosinophils % Basophils % Nucleated RBC % ESR Sodium 136 Potassium 4.4 Chloride 105 Carbon Dioxide 23 Anion Gap 9 BUN 22.4 H Creatinine 1.4 H Est GFR (CKD-EPI)AfAm 68.37 Est GFR (CKD-EPI)NonAf 58.99 Random Glucose 109 H Lactic Acid Calcium 8.1 L Phosphorus Magnesium Total Bilirubin 1.3 H Direct Bilirubin AST 108 H ALT 132 H Alkaline Phosphatase 66 Creatine Kinase 1840 H Creatine Kinase Index CK-MB (CK-2) C-Reactive Protein Total Protein 6.2 L Albumin 2.5 L Urine Color Urine Appearance Urine pH Ur Specific [place] Urine Protein Urine Glucose (UA) Urine Ketones Urine Blood Urine Nitrite Urine Bilirubin Urine Urobilinogen Ur Leukocyte Esterase Hep A IgM Ab Confirm Hep Bs Antigen Hep B Core IgM Ab Hepatitis C Ab (EIA) HIV 1&2 Ag/Ab, 4th Gen HIV 1&2 Antibody Screen HIV P24 Antigen Active Medications Generic Name Dose Route Start Last Admin Trade Name Freq PRN Reason Stop Dose Admin Acetaminophen 650 mg 06/29/19 19:13 06/30/19 06:04 Tylenol - PO 650 mg Q6H PRN Administration FEVER Enoxaparin Sodium 40 mg 06/29/19 10:00 06/29/19 11:56 Lovenox - SQ 40 mg DAILY ELIDA Administration Sodium Chloride 1,000 mls @ 100 mls/hr 06/29/19 06:15 06/30/19 06:08 Normal Saline - IV 100 mls/hr ASDIR ELIDA Administration Azithromycin 500 mg in 250 mls @ 250 mls/hr 06/30/19 10:00 Zithromax 500mg Ivpb (Pre-Docked) IVPB DAILY ELIDA Ceftriaxone Sodium 1 gm/ 50 mls @ 200 mls/hr 06/30/19 10:00 Dextrose IVPB DAILY ELIDA Protocol ASSESSMENT/PLAN: This is a 48 year old man with no past medical history who presented to the ED with fever, chills, and body aches. 1. Sepsis (fever, tachycardia) secondary to Legionella pneumonia and group A Strep pharyngitis - Fever 103.1 this morning; tachycardia improved - Continue ceftriaxone, azithromycin - Continue IV fluid - Pulmonary, ID consults appreciated - Chest CT ordered 2. Hepatic transaminitis secondary to Legionella pneumonia - Improving - Continue to monitor LFTs - HIV, hepatitis panel negative 3. Acute kidney injury secondary to dehydration - Improving - Continue IV fluid 4. Rhabdomyolysis - Improving - Continue IV fluid Visit type - Emergency Visit Emergency Visit: Yes ED Registration Date: 06/29/19 Care time: The patient presented to the Emergency Department on the above date and was hospitalized for further evaluation of their emergent condition. - New Patient This patient is new to me today: No - Critical Care Critical Care patient: No - Discharge Referral Referred to [facility] Med P.C.: No
[2019-06-30] MEDS: CEFTRIAXONE 1 GM in DEXTROSE 5%-WATER - 50 ML IVPB SCH (09:10)
[2019-06-30] MEDS: ENOXAPARIN NA (PORCINE) 40 MG/0.4 ML DISP.SYRIN SQ SCH (09:10)
[2019-06-30] MEDS: AZITHROMYCIN IVPB 500 MG/250 ML BAG IVPB SCH (10:21)
[2019-06-30 10:42] LABS: ANISOCYTOSIS 0; MACROCYTOSIS 0; PLATELET ESTIMATE DECREASED
--- NOTE | 2019-06-30 11:19 | PN ---
Progress Note, Physician History of Present Illness: pulmonary awake,comfortable,-resp distress,-sob - Current Medication List Current Medications: Active Medications Acetaminophen (Tylenol -) 650 mg PO Q6H PRN PRN Reason: FEVER Last Admin: 06/30/19 06:04 Dose: 650 mg Enoxaparin Sodium (Lovenox -) 40 mg SQ DAILY ELIDA Last Admin: 06/30/19 09:10 Dose: 40 mg Sodium Chloride (Normal Saline -) 1,000 mls @ 100 mls/hr IV ASDIR ELIDA Last Admin: 06/30/19 06:08 Dose: 100 mls/hr Azithromycin (Zithromax 500mg Ivpb (Pre-Docked)) 500 mg in 250 mls @ 250 mls/ hr IVPB DAILY [facility] Last Admin: 06/30/19 10:21 Dose: 250 mls/hr Ceftriaxone Sodium 1 gm/ (Dextrose) 50 mls @ 200 mls/hr IVPB DAILY [facility]; Protocol Last Admin: 06/30/19 09:10 Dose: 200 mls/hr - Objective Vital Signs: Vital Signs Temperature 99.9 F H 06/30/19 06:55 Pulse Rate 89 06/30/19 06:00 Respiratory Rate 18 06/29/19 23:50 Blood Pressure 109/49 L 06/30/19 06:00 O2 Sat by Pulse Oximetry (%) 95 06/29/19 23:50 Constitutional: Yes: Well Nourished, Calm Eyes: Yes: WNL HENT: Yes: WNL Neck: Yes: WNL Cardiovascular: Yes: Regular Rate and Rhythm, S1, S2 Respiratory: Yes: CTA Bilaterally Gastrointestinal: Yes: Normal Bowel Sounds, Soft Extremities: Yes: WNL Edema: No Labs: CBC, BMP 06/30/19 06:45 06/30/19 06:45 Laboratory Tests 06/30/19 06:45 Creatine Kinase 1840 H Problem List - Problems (1) Legionella pneumonia Code(s): A48.1 - LEGIONNAIRES' DISEASE (2) Left lower lobe pneumonia Code(s): J18.1 - LOBAR PNEUMONIA, UNSPECIFIED ORGANISM Qualifiers: Pneumonia type: due to unspecified organism Qualified Code(s): J18.1 - Lobar pneumonia, unspecified organism (3) Strep throat Code(s): J02.0 - STREPTOCOCCAL PHARYNGITIS (4) Streptococcal pneumonia Code(s): J15.4 - PNEUMONIA DUE TO OTHER STREPTOCOCCI (5) Acute kidney injury Code(s): N17.9 - ACUTE KIDNEY FAILURE, UNSPECIFIED (6) Anemia Code(s): D64.9 - ANEMIA, UNSPECIFIED Assessment/Plan IMP LEFT LUNG PNEUMONIA LEGIONELLA STREP PHARYNGITIS ANGELA improving ELEVATED LFTS ANEMIA PLAN IV ABX IVF INHALED BRONCHODILATORS O2 CHEST CT PENDING MONITOR LYTES.RENAL FUNCTION,H+H TREND CPK F/U CHEST X-RAY DR SANCHEZ Problem List - Problems (1) Legionella pneumonia Code(s): A48.1 - LEGIONNAIRES' DISEASE (2) Left lower lobe pneumonia Code(s): J18.1 - LOBAR PNEUMONIA, UNSPECIFIED ORGANISM Qualifiers: Pneumonia type: due to unspecified organism Qualified Code(s): J18.1 - Lobar pneumonia, unspecified organism (3) Strep throat Code(s): J02.0 - STREPTOCOCCAL PHARYNGITIS (4) Streptococcal pneumonia Code(s): J15.4 - PNEUMONIA DUE TO OTHER STREPTOCOCCI (5) Acute kidney injury Code(s): N17.9 - ACUTE KIDNEY FAILURE, UNSPECIFIED (6) Anemia Code(s): D64.9 - ANEMIA, UNSPECIFIED
--- NOTE | 2019-06-30 12:13 | PN ---
Progress Note (short form) - Note Progress Note: resting comfortably Vital Signs Period Temp Pulse Resp BP Sys/Thakkar Pulse Ox Last 24 Hr 98.4 F-103.1 F 82-91 18-18 105-116/49-78 95-97 cor-rrr lungs decreased bs on the left abd soft,nt ext no edema CBC, BMP 06/30/19 06:45 06/30/19 06:45 Microbiology 06/29/19 04:05 Blood - Peripheral Venous Blood Culture - Preliminary NO GROWTH OBTAINED AFTER 24 HOURS, INCUBATION TO CONTINUE FOR 4 DAYS. 06/29/19 04:05 Blood - Peripheral Venous Blood Culture - Preliminary NO GROWTH OBTAINED AFTER 24 HOURS, INCUBATION TO CONTINUE FOR 4 DAYS. 06/29/19 03:20 Nasopharyngeal Swab Respiratory Virus Panel - Preliminary 06/29/19 06:10 Urine - Urine Clean Catch Legionella Antigen - Final 06/29/19 06:10 Urine - Urine Clean Catch Streptococcus pneumoniae Antigen ( M - Final Laboratory Tests 06/29/19 06/29/19 06/29/19 03:20 04:00 10:00 Total Bilirubin 2.2 H Creatine Kinase HIV 1&2 Ag/Ab, 4th Gen Non reactive Group A Strep Rapid Positive 06/29/19 06/30/19 20:05 06:45 Total Bilirubin Creatine Kinase 2014 H 1840 H HIV 1&2 Ag/Ab, 4th Gen Group A Strep Rapid a/p Legionella pneumonia-not hypoxic Group a strep pharyngitis sonny- improving abnl lfts-improving rhabodmylosis sputum for legionella culture continue rocephin/zithromax continue IVF for chest ct d/c isolation will follow with you
--- NOTE | 2019-06-30 12:59 | CONS ---
INFECTIOUS DISEASE CONSULTATION DATE OF CONSULTATION: DATE OF DICTATION: 06/30/2019 REQUESTED BY: The hospitalist service. HISTORY OF PRESENT ILLNESS: This is a 48-year-old man. He is otherwise healthy. Last , he returned from [place] where he went to a [employer] convention. He stayed at the hotel there for about 5 days. After return, he felt unwell. He was achy, had chills. He did not take his temperature. He had no appetite. He was drinking fluids, but not eating. He had no diarrhea. He had no sore throat. He had no chest pain or abdominal pain. He noted he had a mild cough. He presented with these complaints to the emergency room where he was noted to have group A strep pharyngitis. He was noted to have a left lung pneumonia and he was admitted for further evaluation. He does not take any medicines. He has been taking some Advil over the counter. He lives alone. He has no pets. He has had no sick contacts. He has no vomiting or diarrhea. He was last sexually active 2 months ago and he is heterosexual. There is no history of any cigarette use. PAST MEDICAL HISTORY: Negative. SURGICAL HISTORY: He has had some right hand surgery. SOCIAL HISTORY: There is no history of cigarette use. Social alcohol. No IV drug use. He lives alone. He has no pets. FAMILY HISTORY: Notable for diabetes in his mother and hypertension in his father. ALLERGIES: He has no known allergies. MEDICINES: Over the counter only. REVIEW OF SYSTEMS: Notable for feeling achy, having chills, and no appetite. PHYSICAL EXAMINATION: General: He is awake and alert. Vital Signs: Temperature was 99.9, pulse was 76, blood pressure 102/64, respiratory rate of 19; he is saturating 97% on room air. HEENT: He is normocephalic. His eyes are anicteric. He has exudative pharyngitis. Neck: Supple. He has no adenopathy. He has no meningeal signs. Lungs: Have diminished breath sounds at the left base. Heart: Regular rate and rhythm. Abdomen: Soft. Nontender. Extremities: Without edema. Skin: He has no rash. IMAGING: Chest x-ray has a possible left lung infiltrate. He had an ultrasound of his abdomen that showed borderline thickening of the gallbladder. He has mild fatty infiltrate of the liver and exophytic right renal simple cyst. LABORATORIES: Notable for a white count of 7.9, hemoglobin 11.3, platelets of 120. His BUN was 30 and creatinine 1.8 with a bilirubin of 1.4, AST 123, ALT 158, alkaline phosphatase of 65. Urinalysis had 1+ bilirubin, 1+ blood, negative. He had a rapid group A strep test that was positive. He had a urinary antigen for legionella that is positive, as well. In summary, this is a 48-year-old man with legionella pneumonia and not hypoxic, group A streptococcal pharyngitis, acute kidney injury, and abnormal LFTs. I would check a CPK to rule out rhabdomyolysis. Would obtain a sputum culture for legionella. Continue ceftriaxone, Zithromax, and IV fluids. A chest CT was ordered which we will follow up. Further recommendations to follow. Randall GUTIERREZ/[id number]
[2019-07-01] MEDS: ACETAMINOPHEN 325 MG TABLET (FP) PO PRN ×2 (05:43→20:35)
[2019-07-01 09:00] LABS: BASO % 0.5 % (0-2.0); EOS % 1.7 % (0-4.5); HEMATOCRIT 33.5 % (35.4-49); HEMOGLOBIN 11.5 GM/dL (11.7-16.9); MCH 29.1 pg (25.7-33.7); MCHC 34.2 g/dl (32.0-35.9); MEAN CELL VOLUME 85.1 fl (80-96); MEAN PLT VOLUME 9.1 fl (7.5-11.1); MONO % 7.8 % (3.8-10.2); PLATELET COUNT 172 K/MM3 (134-434); RBC 3.93 M/mm3 (4.00-5.60); RDW 13.8 % (11.9-15.9); WHITE BLOOD COUNT 6.2 K/mm3 (4.0-10.0)
[2019-07-01] MEDS ORDERED: DEXTROSE 5%-WATER - 50 ML IVPB ONE (09:31)
[2019-07-01] MEDS ORDERED: cefTRIAXone SODIUM 1 GM VIAL ONE (09:31)
[2019-07-01 09:36] LABS: ALBUMIN 2.3 g/dl (3.4-5.0); ALK PHOS 66 U/L (45-117); ANION GAP 6 MMOL/L (8-16); BILIRUBIN,TOTAL 1.1 mg/dL (0.2-1); BLOOD UREA NITROGEN 14.6 mg/dL (7-18); CALCIUM 8.1 mg/dL (8.5-10.1); CHLORIDE 105 mmol/L (98-107); CO2 26 mmol/L (21-32); CREATININE 1.2 mg/dL (0.55-1.3); GLUCOSE,RANDOM 111 mg/dL (74-106); POTASSIUM 4.4 mmol/L (3.5-5.1); SGOT/AST 99 U/L (15-37); SGPT/ALT 118 U/L (13-61); SODIUM 137 mmol/L (136-145)
[2019-07-01] MEDS: CEFTRIAXONE 1 GM in DEXTROSE 5%-WATER - 50 ML IVPB SCH (09:37)
[2019-07-01] MEDS: ENOXAPARIN NA (PORCINE) 40 MG/0.4 ML DISP.SYRIN SQ SCH (09:38)
[2019-07-01] MEDS: SODIUM CHLORIDE 1,000 ML IV SCH ×3 (09:38→18:37)
[2019-07-01] MEDS: AZITHROMYCIN IVPB 500 MG/250 ML BAG IVPB SCH (09:41)
--- NOTE | 2019-07-01 10:12 | PN ---
Physical Exam: SUBJECTIVE: Patient seen and examined. He says he feels tired. Otherwise, he has no complaints. OBJECTIVE: Vital Signs Period Temp Pulse Resp BP Sys/Thakkar Pulse Ox Last 24 Hr 98.3 F-103.0 F 85-87 18-20 109-112/65-74 98 GENERAL: The patient is awake, alert, and fully oriented, in no acute distress. LUNGS: Breath sounds equal, clear to auscultation bilaterally, no wheezes, no crackles, no accessory muscle use. HEART: Regular rate and rhythm, S1, S2 without murmur, rub or gallop. ABDOMEN: Soft, nontender, nondistended, normoactive bowel sounds, no guarding, no rebound, no hepatosplenomegaly, no masses. EXTREMITIES: 2+ pulses, warm, well-perfused, no edema. Laboratory Results - last 24 hr 06/30/19 07/01/19 07/01/19 06:45 07:40 07:40 WBC 6.2 RBC 3.93 L Hgb 11.5 L Hct 33.5 L MCV 85.1 MCH 29.1 MCHC 34.2 RDW 13.8 Plt Count 172 D MPV 9.1 Absolute Neuts (auto) 4.5 Neutrophils % 73.0 Neutrophils % (Manual) 70.3 Band Neutrophils % 1.0 Lymphocytes % 17.0 Lymphocytes % (Manual) 17.8 Monocytes % 7.8 Monocytes % (Manual) 7 Eosinophils % 1.7 Eosinophils % (Manual) 1.0 Basophils % 0.5 Basophils % (Manual) 1.0 Myelocytes % (Man) 0 Promyelocytes % (Man) 0 Blast Cells % (Manual) 0 Nucleated RBC % 0 Metamyelocytes 0 Hypochromia 0 Platelet Estimate Decreased Polychromasia 0 Poikilocytosis 0 Anisocytosis 0 Microcytosis 0 Macrocytosis 0 Sodium 137 Potassium 4.4 Chloride 105 Carbon Dioxide 26 Anion Gap 6 L BUN 14.6 Creatinine 1.2 Est GFR (CKD-EPI)AfAm 82.38 Est GFR (CKD-EPI)NonAf 71.08 Random Glucose 111 H Calcium 8.1 L Total Bilirubin 1.1 H AST 99 H ALT 118 H Alkaline Phosphatase 66 Creatine Kinase 1047 H Creatine Kinase Index No Result Required. CK-MB (CK-2) < 1.0 Total Protein 6.0 L Albumin 2.3 L Active Medications Generic Name Dose Route Start Last Admin Trade Name Freq PRN Reason Stop Dose Admin Acetaminophen 650 mg 06/29/19 19:13 07/01/19 05:43 Tylenol - PO 650 mg Q6H PRN Administration FEVER Enoxaparin Sodium 40 mg 06/29/19 10:00 07/01/19 09:38 Lovenox - SQ 40 mg DAILY ELIDA Administration Sodium Chloride 1,000 mls @ 100 mls/hr 06/29/19 06:15 07/01/19 09:38 Normal Saline - IV Not Given ASDIR ELIDA Azithromycin 500 mg in 250 mls @ 250 mls/hr 06/30/19 10:00 07/01/19 09:41 Zithromax 500mg Ivpb (Pre-Docked) IVPB 250 mls/hr DAILY ELIDA Administration Ceftriaxone Sodium 1 gm/ 50 mls @ 200 mls/hr 06/30/19 10:00 07/01/19 09:37 Dextrose IVPB 200 mls/hr DAILY ELIDA Administration Protocol ASSESSMENT/PLAN: This is a 48 year old man with no past medical history who presented to the ED with fever, chills, and body aches. 1. Sepsis (fever, tachycardia) secondary to Legionella pneumonia and group A Strep pharyngitis - Fever 101.0 this morning; tachycardia improved - Continue ceftriaxone, azithromycin - Continue IV fluid - Chest CT pending 2. Hepatic transaminitis secondary to Legionella pneumonia - Improving - Continue to monitor LFTs - HIV, hepatitis panel negative 3. Acute kidney injury secondary to dehydration - Improved 4. Rhabdomyolysis - Improving - Continue IV fluid Visit type - Emergency Visit Emergency Visit: Yes ED Registration Date: 06/29/19 Care time: The patient presented to the Emergency Department on the above date and was hospitalized for further evaluation of their emergent condition. - New Patient This patient is new to me today: No - Critical Care Critical Care patient: No - Discharge Referral Referred to [facility] Med P.C.: No
--- NOTE | 2019-07-01 10:54 | PN ---
Progress Note, Physician History of Present Illness: pulmonary alert,feeling better dyspnea improving. tmax 101 - Current Medication List Current Medications: Active Medications Acetaminophen (Tylenol -) 650 mg PO Q6H PRN PRN Reason: FEVER Last Admin: 07/01/19 05:43 Dose: 650 mg Enoxaparin Sodium (Lovenox -) 40 mg SQ DAILY ELIDA Last Admin: 07/01/19 09:38 Dose: 40 mg Azithromycin (Zithromax 500mg Ivpb (Pre-Docked)) 500 mg in 250 mls @ 250 mls/ hr IVPB DAILY ELIDA Last Admin: 07/01/19 09:41 Dose: 250 mls/hr Ceftriaxone Sodium 1 gm/ (Dextrose) 50 mls @ 200 mls/hr IVPB DAILY ELIDA; Protocol Last Admin: 07/01/19 09:37 Dose: 200 mls/hr Sodium Chloride (Normal Saline -) 1,000 mls @ 75 mls/hr IV ASDIR ELIDA - Objective Vital Signs: Vital Signs Temperature 101.0 F H 07/01/19 06:00 Pulse Rate 85 07/01/19 06:00 Respiratory Rate 20 07/01/19 06:00 Blood Pressure 109/65 07/01/19 06:00 O2 Sat by Pulse Oximetry (%) 98 06/30/19 21:00 Constitutional: Yes: Well Nourished, Calm Eyes: Yes: WNL HENT: Yes: WNL Neck: Yes: WNL Cardiovascular: Yes: Regular Rate and Rhythm, S1, S2 Respiratory: Yes: Rales (crackles on left) Gastrointestinal: Yes: Normal Bowel Sounds, Soft Extremities: Yes: WNL Edema: No Labs: CBC, BMP 07/01/19 07:40 07/01/19 07:40 - ....Imaging Cat Scan: Image Reviewed (extensive left lung consolidation,rrl infiltrate, small nodule rll) Problem List - Problems (1) Legionella pneumonia Code(s): A48.1 - LEGIONNAIRES' DISEASE (2) Left lower lobe pneumonia Code(s): J18.1 - LOBAR PNEUMONIA, UNSPECIFIED ORGANISM Qualifiers: Pneumonia type: due to unspecified organism Qualified Code(s): J18.1 - Lobar pneumonia, unspecified organism (3) Strep throat Code(s): J02.0 - STREPTOCOCCAL PHARYNGITIS (4) Streptococcal pneumonia Code(s): J15.4 - PNEUMONIA DUE TO OTHER STREPTOCOCCI (5) Acute kidney injury Code(s): N17.9 - ACUTE KIDNEY FAILURE, UNSPECIFIED (6) Anemia Code(s): D64.9 - ANEMIA, UNSPECIFIED Assessment/Plan IMP LEFT LUNG PNEUMONIA LEGIONELLA STREP PHARYNGITIS ANGELA improving ELEVATED LFTS ANEMIA ELEVATED CPK IMPROVING PLAN IV ABX PER ID IVF INHALED BRONCHODILATORS O2 MONITOR LYTES.RENAL FUNCTION,H+H TREND CPK F/U CHEST X-RAY DR SANCHEZ Problem List - Problems (1) Legionella pneumonia Code(s): A48.1 - LEGIONNAIRES' DISEASE (2) Left lower lobe pneumonia Code(s): J18.1 - LOBAR PNEUMONIA, UNSPECIFIED ORGANISM Qualifiers: Pneumonia type: due to unspecified organism Qualified Code(s): J18.1 - Lobar pneumonia, unspecified organism (3) Strep throat Code(s): J02.0 - STREPTOCOCCAL PHARYNGITIS (4) Streptococcal pneumonia Code(s): J15.4 - PNEUMONIA DUE TO OTHER STREPTOCOCCI (5) Acute kidney injury Code(s): N17.9 - ACUTE KIDNEY FAILURE, UNSPECIFIED (6) Anemia Code(s): D64.9 - ANEMIA, UNSPECIFIED
--- NOTE | 2019-07-01 11:31 | EKG ---
Test Reason : Blood Pressure : / mmHG Vent. Rate : 078 BPM Atrial Rate : 078 BPM P-R Int : 172 ms QRS Dur : 100 ms QT Int : 368 ms P-R-T Axes : 033 -20 003 degrees QTc Int : 419 ms NORMAL SINUS RHYTHM INCOMPLETE RIGHT BUNDLE BRANCH BLOCK BORDERLINE ECG WHEN COMPARED WITH ECG OF 29-JUN-2019 03:32, NO SIGNIFICANT CHANGE WAS FOUND Confirmed by ZANDRA KIMBALL, DIXON ([id number]) on 07/01/2019 11:31:17 AM Referred By: Confirmed By:DIXON DE PAZ MD
--- NOTE | 2019-07-01 13:14 | PN ---
Progress Note (short form) - Note Progress Note: resting comfortably day #3 antiibotics still some fevers Vital Signs Period Temp Pulse Resp BP Sys/Thakkar Pulse Ox Last 24 Hr 98.3 F-103.0 F 85-87 18-20 109-112/65-74 98 cor-rrr lungs dereased bs at bases abd soft,nt ext no edea CBC, BMP 07/01/19 07:40 07/01/19 07:40 Laboratory Tests 06/29/19 06/29/19 06/29/19 03:20 04:00 10:00 Total Bilirubin 2.2 H Creatine Kinase HIV 1&2 Ag/Ab, 4th Gen Non reactive Group A Strep Rapid Positive 06/29/19 06/30/19 07/01/19 20:05 06:45 07:40 Total Bilirubin Creatine Kinase 2014 H 1840 H 1047 H HIV 1&2 Ag/Ab, 4th Gen Group A Strep Rapid Microbiology 06/29/19 04:05 Blood - Peripheral Venous Blood Culture - Preliminary NO GROWTH OBTAINED AFTER 48 HOURS, INCUBATION TO CONTINUE FOR 3 DAYS. 06/29/19 04:05 Blood - Peripheral Venous Blood Culture - Preliminary NO GROWTH OBTAINED AFTER 48 HOURS, INCUBATION TO CONTINUE FOR 3 DAYS. 06/29/19 03:20 Nasopharyngeal Swab Respiratory Virus Panel - Preliminary 06/29/19 06:10 Urine - Urine Clean Catch Legionella Antigen - Final 06/29/19 06:10 Urine - Urine Clean Catch Streptococcus pneumoniae Antigen ( M - Final hest ct a/p Legionella pneumonia-not hypoxic Group a strep pharyngitis sonny- resolved abnl lfts-improving rhabodmylosis-pk trending down sputum for legionella culture if able continue rocephin/zithromax day #3 continue IVF
[2019-07-02 07:46] LABS: HEMATOCRIT 32.7 % (35.4-49); HEMOGLOBIN 11.2 GM/dL (11.7-16.9); MCH 29.2 pg (25.7-33.7); MCHC 34.2 g/dl (32.0-35.9); MEAN CELL VOLUME 85.3 fl (80-96); MEAN PLT VOLUME 8.7 fl (7.5-11.1); PLATELET COUNT 218 K/MM3 (134-434); RBC 3.83 M/mm3 (4.00-5.60); RDW 13.9 % (11.9-15.9); WHITE BLOOD COUNT 5.8 K/mm3 (4.0-10.0)
[2019-07-02 07:51] LABS: BLOOD UREA NITROGEN 11.4 mg/dL (7-18); CALCIUM 8.2 mg/dL (8.5-10.1); POTASSIUM 4.7 mmol/L (3.5-5.1)
--- NOTE | 2019-07-02 09:59 | PN ---
Physical Exam: SUBJECTIVE: Patient seen and examined at bedside. Mild headache. No other complaints. OBJECTIVE: Vital Signs Period Temp Pulse Resp BP Sys/Thakkar Pulse Ox Last 24 Hr 98.2 F-102.1 F 75-88 20-20 103-113/61-69 98 Gen: comfortable in bed HEENT: NCAT Neck: supple, no jvd, no LAD noted Cardio: rrr, normal s1s2, no mrg Pulm: cta b/l Abd: soft, nontender, nondistended Ext: no edema Laboratory Results - last 24 hr 07/02/19 07/02/19 06:00 06:00 WBC 5.8 RBC 3.83 L Hgb 11.2 L Hct 32.7 L MCV 85.3 MCH 29.2 MCHC 34.2 RDW 13.9 Plt Count 218 D MPV 8.7 Sodium 139 Potassium 4.7 Chloride 106 Carbon Dioxide 28 Anion Gap 6 L BUN 11.4 Creatinine 1.0 Est GFR (CKD-EPI)AfAm 102.69 Est GFR (CKD-EPI)NonAf 88.61 Random Glucose 102 Calcium 8.2 L Creatine Kinase 560 H Creatine Kinase Index 0.2 CK-MB (CK-2) 1.3 Active Medications Generic Name Dose Route Start Last Admin Trade Name Freq PRN Reason Stop Dose Admin Acetaminophen 650 mg 06/29/19 19:13 07/01/19 20:35 Tylenol - PO 650 mg Q6H PRN Administration FEVER Enoxaparin Sodium 40 mg 06/29/19 10:00 07/01/19 09:38 Lovenox - SQ 40 mg DAILY ELIDA Administration Azithromycin 500 mg in 250 mls @ 250 mls/hr 06/30/19 10:00 07/01/19 09:41 Zithromax 500mg Ivpb (Pre-Docked) IVPB 250 mls/hr DAILY [facility]IDA Administration Ceftriaxone Sodium 1 gm/ 50 mls @ 200 mls/hr 06/30/19 10:00 07/01/19 09:37 Dextrose IVPB 200 mls/hr DAILY ELIDA Administration Protocol Sodium Chloride 1,000 mls @ 75 mls/hr 07/01/19 10:13 07/01/19 18:37 Normal Saline - IV 75 mls/hr ASDIR ELIDA Administration Active Medications Acetaminophen (Tylenol -) 650 mg PO Q6H PRN PRN Reason: FEVER Last Admin: 07/01/19 20:35 Dose: 650 mg Enoxaparin Sodium (Lovenox -) 40 mg SQ DAILY [facility] Last Admin: 07/01/19 09:38 Dose: 40 mg Azithromycin (Zithromax 500mg Ivpb (Pre-Docked)) 500 mg in 250 mls @ 250 mls/ hr IVPB DAILY [facility] Last Admin: 07/01/19 09:41 Dose: 250 mls/hr Ceftriaxone Sodium 1 gm/ (Dextrose) 50 mls @ 200 mls/hr IVPB DAILY [facility]; Protocol Last Admin: 07/01/19 09:37 Dose: 200 mls/hr Sodium Chloride (Normal Saline -) 1,000 mls @ 75 mls/hr IV ASDIR ELIDA Last Admin: 07/01/19 18:37 Dose: 75 mls/hr ASSESSMENT/PLAN: This is a 48 year old man with no past medical history who presented to the ED with fever, chills, and body aches. # Sepsis (fever, tachycardia) secondary to Legionella pneumonia and group A Strep pharyngitis -febrile 102.1 yesterday - Continue ceftriaxone, azithromycin, IV fluid - Chest CT shows large area of consolidation in WIL; mild bibasilar atelectasis ; 4mm nodule left lung base; 8mm nodule lateral RLL; exophytic right renal cyst - CXR today: progressive L infiltrate and new R basilar atalectasis #Hepatic transaminitis secondary to Legionella pneumonia - Improving - Continue to monitor LFTs - HIV, hepatitis panel negative\ -ID on board #Acute kidney injury secondary to dehydration -In setting of Rhabdo - Improved # Rhabdomyolysis - CK < 1000 today Visit type - Emergency Visit Emergency Visit: No - New Patient This patient is new to me today: Yes Date on this admission: 07/02/19 - Critical Care Critical Care patient: No ATTENDING PHYSICIAN STATEMENT I saw and evaluated the patient. I reviewed the resident's note and discussed the case with the resident. I agree with the resident's findings and plan as documented. SUBJECTIVE: OBJECTIVE: ASSESSMENT AND PLAN:
[2019-07-02] MEDS ORDERED: DEXTROSE 5%-WATER - 50 ML IVPB ONE (10:02)
[2019-07-02] MEDS ORDERED: cefTRIAXone SODIUM 1 GM VIAL ONE (10:02)
[2019-07-02] MEDS: CEFTRIAXONE 1 GM in DEXTROSE 5%-WATER - 50 ML IVPB SCH (10:07)
[2019-07-02] MEDS: AZITHROMYCIN IVPB 500 MG/250 ML BAG IVPB SCH (10:07)
[2019-07-02] MEDS: ENOXAPARIN NA (PORCINE) 40 MG/0.4 ML DISP.SYRIN SQ SCH (10:08)
--- NOTE | 2019-07-02 12:18 | PN ---
Progress Note, Physician History of Present Illness: pulmonary alert,feeling better,less sob. tmax 102.1 - Current Medication List Current Medications: Active Medications Acetaminophen (Tylenol -) 650 mg PO Q6H PRN PRN Reason: FEVER Last Admin: 07/01/19 20:35 Dose: 650 mg Enoxaparin Sodium (Lovenox -) 40 mg SQ DAILY [facility] Last Admin: 07/02/19 10:08 Dose: 40 mg Azithromycin (Zithromax 500mg Ivpb (Pre-Docked)) 500 mg in 250 mls @ 250 mls/ hr IVPB DAILY [facility]IDA Last Admin: 07/02/19 10:07 Dose: 250 mls/hr Ceftriaxone Sodium 1 gm/ (Dextrose) 50 mls @ 200 mls/hr IVPB DAILY [facility]; Protocol Last Admin: 07/02/19 10:07 Dose: 200 mls/hr Sodium Chloride (Normal Saline -) 1,000 mls @ 75 mls/hr IV ASDIR ELIDA Last Admin: 07/01/19 18:37 Dose: 75 mls/hr - Objective Vital Signs: Vital Signs Temperature 98.5 F 07/02/19 05:37 Pulse Rate 75 07/02/19 05:37 Respiratory Rate 20 07/02/19 05:37 Blood Pressure 113/68 07/02/19 05:37 O2 Sat by Pulse Oximetry (%) 98 07/01/19 21:00 Constitutional: Yes: Well Nourished, Calm Eyes: Yes: WNL HENT: Yes: WNL Neck: Yes: WNL Cardiovascular: Yes: Regular Rate and Rhythm, S1, S2 Respiratory: Yes: Rales (few crackles left) Gastrointestinal: Yes: Normal Bowel Sounds, Soft Extremities: Yes: WNL Edema: No Labs: CBC, BMP 07/02/19 06:00 07/02/19 06:00 Problem List - Problems (1) Legionella pneumonia Code(s): A48.1 - LEGIONNAIRES' DISEASE (2) Left lower lobe pneumonia Code(s): J18.1 - LOBAR PNEUMONIA, UNSPECIFIED ORGANISM Qualifiers: Pneumonia type: due to unspecified organism Qualified Code(s): J18.1 - Lobar pneumonia, unspecified organism (3) Strep throat Code(s): J02.0 - STREPTOCOCCAL PHARYNGITIS (4) Streptococcal pneumonia Code(s): J15.4 - PNEUMONIA DUE TO OTHER STREPTOCOCCI (5) Acute kidney injury Code(s): N17.9 - ACUTE KIDNEY FAILURE, UNSPECIFIED (6) Anemia Code(s): D64.9 - ANEMIA, UNSPECIFIED Assessment/Plan IMP LEFT LUNG PNEUMONIA LEGIONELLA STREP PHARYNGITIS ANGELA improving ELEVATED LFTS ANEMIA ELEVATED CPK IMPROVING PLAN IV ABX PER ID IVF INHALED BRONCHODILATORS O2 MONITOR LYTES.RENAL FUNCTION,H+H TREND CPK F/U CHEST X-RAY TODAY DR SANCHEZ Problem List - Problems (1) Legionella pneumonia Code(s): A48.1 - LEGIONNAIRES' DISEASE (2) Left lower lobe pneumonia Code(s): J18.1 - LOBAR PNEUMONIA, UNSPECIFIED ORGANISM Qualifiers: Pneumonia type: due to unspecified organism Qualified Code(s): J18.1 - Lobar pneumonia, unspecified organism (3) Strep throat Code(s): J02.0 - STREPTOCOCCAL PHARYNGITIS (4) Streptococcal pneumonia Code(s): J15.4 - PNEUMONIA DUE TO OTHER STREPTOCOCCI (5) Acute kidney injury Code(s): N17.9 - ACUTE KIDNEY FAILURE, UNSPECIFIED (6) Anemia Code(s): D64.9 - ANEMIA, UNSPECIFIED
--- NOTE | 2019-07-02 13:20 | PN ---
Teaching Attending Note Name of Resident: Eddie Vang ATTENDING PHYSICIAN STATEMENT I saw and evaluated the patient. I reviewed the resident's note and discussed the case with the resident. I agree with the resident's findings and plan as documented. SUBJECTIVE: Patient is feeling better. OBJECTIVE: Vital Signs Period Temp Pulse Resp BP Sys/Thakkar Pulse Ox Last 24 Hr 98.2 F-102.1 F 75-88 20-20 103-113/61-69 98 GENERAL: The patient is awake, alert, and fully oriented, in no acute distress. LUNGS: Breath sounds equal, (+) crackles at left base, no wheezes, no crackles, no accessory muscle use. HEART: Regular rate and rhythm, S1, S2 without murmur, rub or gallop. ABDOMEN: Soft, nontender, nondistended, normoactive bowel sounds, no guarding, no rebound, no hepatosplenomegaly, no masses. EXTREMITIES: 2+ pulses, warm, well-perfused, no edema. Laboratory Results - last 24 hr 07/02/19 07/02/19 06:00 06:00 WBC 5.8 RBC 3.83 L Hgb 11.2 L Hct 32.7 L MCV 85.3 MCH 29.2 MCHC 34.2 RDW 13.9 Plt Count 218 D MPV 8.7 Sodium 139 Potassium 4.7 Chloride 106 Carbon Dioxide 28 Anion Gap 6 L BUN 11.4 Creatinine 1.0 Est GFR (CKD-EPI)AfAm 102.69 Est GFR (CKD-EPI)NonAf 88.61 Random Glucose 102 Calcium 8.2 L Creatine Kinase 560 H Creatine Kinase Index 0.2 CK-MB (CK-2) 1.3 Current Medications Generic Name Dose Route Start Last Admin Trade Name Freq PRN Reason Stop Dose Admin Acetaminophen 650 mg 06/29/19 19:13 07/01/19 20:35 Tylenol - PO 650 mg Q6H PRN Administration FEVER Enoxaparin Sodium 40 mg 06/29/19 10:00 07/02/19 10:08 Lovenox - SQ 40 mg DAILY ELIDA Administration Azithromycin 500 mg in 250 mls @ 250 mls/hr 06/30/19 10:00 07/02/19 10:07 Zithromax 500mg Ivpb (Pre-Docked) IVPB 250 mls/hr DAILY ELIDA Administration Ceftriaxone Sodium 1 gm/ 50 mls @ 200 mls/hr 06/30/19 10:00 07/02/19 10:07 Dextrose IVPB 200 mls/hr DAILY ELIDA Administration Protocol Sodium Chloride 1,000 mls @ 75 mls/hr 07/01/19 10:13 07/01/19 18:37 Normal Saline - IV 75 mls/hr ASDIR ELIDA Administration ASSESSMENT AND PLAN: This is a 48 year old man with no past medical history who presented to the ED with fever, chills, and body aches. 1. Sepsis (fever, tachycardia) secondary to Legionella pneumonia and group A Strep pharyngitis - Fever 102.1 yesterday evening; tachycardia improved - Continue ceftriaxone, azithromycin, IV fluid - Chest CT shows large area of consolidation in WIL; mild bibasilar atelectasis; 4mm nodule left lung base; 8mm nodule lateral RLL; exophytic right renal cyst - CXR today pending 2. Hepatic transaminitis secondary to Legionella pneumonia - Improving - Continue to monitor LFTs - HIV, hepatitis panel negative 3. Acute kidney injury secondary to dehydration - Improved 4. Rhabdomyolysis - CK improved
--- NOTE | 2019-07-02 15:15 | PN ---
Progress Note (short form) - Note Progress Note: resting comfortably day #4 antiibotics febril last night Vital Signs Period Temp Pulse Resp BP Sys/Thakkar Pulse Ox Last 24 Hr 98.5 F-102.1 F 75-90 18-20 103-113/61-70 96-98 cor-rrr lungs decreased bs at bases abd soft,nt ext no edema CBC, BMP 07/02/19 06:00 07/02/19 06:00 Laboratory Tests 06/29/19 06/29/19 06/29/19 03:20 04:00 10:00 Total Bilirubin 2.2 H Creatine Kinase HIV 1&2 Ag/Ab, 4th Gen Non reactive Group A Strep Rapid Positive 06/29/19 06/30/19 07/01/19 20:05 06:45 07:40 Total Bilirubin Creatine Kinase 2014 H 1840 H 1047 H HIV 1&2 Ag/Ab, 4th Gen Group A Strep Rapid Current Medications Acetaminophen (Tylenol -) 650 mg PO Q6H PRN PRN Reason: FEVER Last Admin: 07/01/19 20:35 Dose: 650 mg Enoxaparin Sodium (Lovenox -) 40 mg SQ DAILY [facility] Last Admin: 07/02/19 10:08 Dose: 40 mg Azithromycin (Zithromax 500mg Ivpb (Pre-Docked)) 500 mg in 250 mls @ 250 mls/ hr IVPB DAILY [facility] Last Admin: 07/02/19 10:07 Dose: 250 mls/hr Ceftriaxone Sodium 1 gm/ (Dextrose) 50 mls @ 200 mls/hr IVPB DAILY [facility]; Protocol Last Admin: 07/02/19 10:07 Dose: 200 mls/hr Sodium Chloride (Normal Saline -) 1,000 mls @ 75 mls/hr IV ASDIR ELIDA Last Admin: 07/01/19 18:37 Dose: 75 mls/hr a/p Legionella pneumonia-not hypoxic Group a strep pharyngitis sonny- resolved abnl lfts-improving rhabodmylosis-pk trending down sputum for legionella culture if able continue rocephin/zithromax day #4 f/u cxray
--- NOTE | 2019-07-03 07:38 | PN ---
Physical Exam: SUBJECTIVE: Patient seen and examined at bedside. No complaints. OBJECTIVE: Vital Signs Period Temp Pulse Resp BP Sys/Thakkar Pulse Ox Last 24 Hr 97.9 F-99.0 F 77-100 18-20 104-112/67-77 96 exam unchanged Gen: comfortable in bed HEENT: NCAT Neck: supple, no jvd, no LAD noted Cardio: rrr, normal s1s2, no mrg Pulm: cta b/l Abd: soft, nontender, nondistended Ext: no edema Laboratory Results - last 24 hr 07/02/19 07/02/19 06:00 06:00 WBC 5.8 RBC 3.83 L Hgb 11.2 L Hct 32.7 L MCV 85.3 MCH 29.2 MCHC 34.2 RDW 13.9 Plt Count 218 D MPV 8.7 Sodium 139 Potassium 4.7 Chloride 106 Carbon Dioxide 28 Anion Gap 6 L BUN 11.4 Creatinine 1.0 Est GFR (CKD-EPI)AfAm 102.69 Est GFR (CKD-EPI)NonAf 88.61 Random Glucose 102 Calcium 8.2 L Creatine Kinase 560 H Creatine Kinase Index 0.2 CK-MB (CK-2) 1.3 Active Medications Generic Name Dose Route Start Last Admin Trade Name Freq PRN Reason Stop Dose Admin Acetaminophen 650 mg 06/29/19 19:13 07/01/19 20:35 Tylenol - PO 650 mg Q6H PRN Administration FEVER Enoxaparin Sodium 40 mg 06/29/19 10:00 07/02/19 10:08 Lovenox - SQ 40 mg DAILY ELIDA Administration Azithromycin 500 mg in 250 mls @ 250 mls/hr 06/30/19 10:00 07/02/19 10:07 Zithromax 500mg Ivpb (Pre-Docked) IVPB 250 mls/hr DAILY ELIDA Administration Ceftriaxone Sodium 1 gm/ 50 mls @ 200 mls/hr 06/30/19 10:00 07/02/19 10:07 Dextrose IVPB 200 mls/hr DAILY ELIDA Administration Protocol Active Medications Acetaminophen (Tylenol -) 650 mg PO Q6H PRN PRN Reason: FEVER Last Admin: 07/01/19 20:35 Dose: 650 mg Enoxaparin Sodium (Lovenox -) 40 mg SQ DAILY [facility] Last Admin: 07/02/19 10:08 Dose: 40 mg Azithromycin (Zithromax 500mg Ivpb (Pre-Docked)) 500 mg in 250 mls @ 250 mls/ hr IVPB DAILY [facility] Last Admin: 07/02/19 10:07 Dose: 250 mls/hr Ceftriaxone Sodium 1 gm/ (Dextrose) 50 mls @ 200 mls/hr IVPB DAILY [facility]; Protocol Last Admin: 07/02/19 10:07 Dose: 200 mls/hr ASSESSMENT/PLAN: This is a 48 year old man with no past medical history who presented to the ED with fever, chills, and body aches. # Sepsis (fever, tachycardia) secondary to Legionella pneumonia and group A Strep pharyngitis - afebrile overnight - Continue ceftriaxone, azithromycin, IV fluid - Chest CT shows large area of consolidation in WIL; mild bibasilar atelectasis ; 4mm nodule left lung base; 8mm nodule lateral RLL; exophytic right renal cyst - CXR: progressive L infiltrate and new R basilar atalectasis - d/w ID, pt will stay at least for 48 hrs afebrile #Hepatic transaminitis secondary to Legionella pneumonia - Improving - Continue to monitor LFTs - HIV, hepatitis panel negative\ -ID on board #Acute kidney injury secondary to dehydration -In setting of Rhabdo - Improved # Rhabdomyolysis - CK < 1000 today Visit type - Emergency Visit Emergency Visit: No - New Patient This patient is new to me today: No - Critical Care Critical Care patient: No ATTENDING PHYSICIAN STATEMENT I saw and evaluated the patient. I reviewed the resident's note and discussed the case with the resident. I agree with the resident's findings and plan as documented. SUBJECTIVE: OBJECTIVE: ASSESSMENT AND PLAN:
[2019-07-03] MEDS ORDERED: cefTRIAXone SODIUM 1 GM VIAL ONE (09:49)
[2019-07-03] MEDS ORDERED: DEXTROSE 5%-WATER - 50 ML IVPB ONE (09:49)
[2019-07-03] MEDS: CEFTRIAXONE 1 GM in DEXTROSE 5%-WATER - 50 ML IVPB SCH (10:01)
[2019-07-03] MEDS: AZITHROMYCIN IVPB 500 MG/250 ML BAG IVPB SCH (10:01)
[2019-07-03] MEDS: ENOXAPARIN NA (PORCINE) 40 MG/0.4 ML DISP.SYRIN SQ SCH (10:01)
--- NOTE | 2019-07-03 13:41 | PN ---
Progress Note (short form) - Note Progress Note: PULMONARY Denies shortness of breath. +nonproductive cough. No fevers or chills. Vital Signs Period Temp Pulse Resp BP Sys/Thakkar Pulse Ox Last 24 Hr 97.9 F-99.0 F 72-100 18-20 104-110/66-77 95 Gen: NAD at rest Heart: RRR Lung: decreased breath sounds at the bases Abd: soft, nontender Ext: no edema CBC, BMP 07/02/19 06:00 07/02/19 06:00 Active Medications Acetaminophen (Tylenol -) 650 mg PO Q6H PRN PRN Reason: FEVER Last Admin: 07/01/19 20:35 Dose: 650 mg Enoxaparin Sodium (Lovenox -) 40 mg SQ DAILY [facility] Last Admin: 07/03/19 10:01 Dose: 40 mg Azithromycin (Zithromax 500mg Ivpb (Pre-Docked)) 500 mg in 250 mls @ 250 mls/ hr IVPB DAILY [facility] Last Admin: 07/03/19 10:01 Dose: 250 mls/hr Ceftriaxone Sodium 1 gm/ (Dextrose) 50 mls @ 200 mls/hr IVPB DAILY [facility]; Protocol Last Admin: 07/03/19 10:01 Dose: 200 mls/hr A/P Legionella Pneumonia Sepsis Rhabdomyolysis Acute Kidney Injury Elevated LFTs Anemia - continue antibiotics per ID - O2 as needed - will need outpt f/u of chest imaging to ensure resolution of infiltrates in 6 -8 weeks - DVT prophylaxis
--- NOTE | 2019-07-03 15:23 | PN ---
Teaching Attending Note Name of Resident: Eddie Vang ATTENDING PHYSICIAN STATEMENT I saw and evaluated the patient. I reviewed the resident's note and discussed the case with the resident. I agree with the resident's findings and plan as documented with exceptions below. SUBJECTIVE: Patient seen and examined. Breathing well, no fevers. chills. Still with poor appetite but overall better. No new complaints, abdominal pain or diarrhea. reports left sided pleuritic pain but no concerns otherwise. OBJECTIVE: Vital Signs Period Temp Pulse Resp BP Sys/Thakkar Pulse Ox Last 24 Hr 97.9 F-99.0 F 72-111 18-20 104-115/66-78 91-95 Intake & Output 06/30/19 07/01/19 07/02/19 07/03/19 23:59 23:59 23:59 23:59 Intake Total 2500 800 900 300 Output Total 900 500 300 Balance 2500 -100 400 0 General: sitting in bed in no acute distress neck: soft, supple CVS:S1S2 regular Chest: left basilar rales Abdomen:soft, obese, NT Extremities: no edema Home Medications Medication Instructions Recorded NK [No Known Home Medication] 06/29/19 Active Medications Acetaminophen (Tylenol -) 650 mg PO Q6H PRN PRN Reason: FEVER Last Admin: 07/01/19 20:35 Dose: 650 mg Enoxaparin Sodium (Lovenox -) 40 mg SQ DAILY [facility] Last Admin: 07/03/19 10:01 Dose: 40 mg Azithromycin (Zithromax 500mg Ivpb (Pre-Docked)) 500 mg in 250 mls @ 250 mls/ hr IVPB DAILY [facility] Last Admin: 07/03/19 10:01 Dose: 250 mls/hr Ceftriaxone Sodium 1 gm/ (Dextrose) 50 mls @ 200 mls/hr IVPB DAILY [facility]; Protocol Last Admin: 07/03/19 10:01 Dose: 200 mls/hr Microbiology 06/29/19 04:05 Blood - Peripheral Venous Blood Culture - Preliminary NO GROWTH OBTAINED AFTER 96 HOURS, INCUBATION TO CONTINUE FOR 1 DAYS. 06/29/19 04:05 Blood - Peripheral Venous Blood Culture - Preliminary NO GROWTH OBTAINED AFTER 96 HOURS, INCUBATION TO CONTINUE FOR 1 DAYS. 06/29/19 03:20 Nasopharyngeal Swab Respiratory Virus Panel - Preliminary 06/29/19 06:10 Urine - Urine Clean Catch Legionella Antigen - Final 06/29/19 06:10 Urine - Urine Clean Catch Streptococcus pneumoniae Antigen ( M - Final ASSESSMENT AND PLAN: 48 year old man with no past medical history who presented to the ED with fever , chills, and body aches. -Left lung Legionella Pneumonia with sepsis -Streptococcal pharyngitis -Transaminitis, due to Legionella PNA -ANGELA, suspect dehydration -Rhabdomyolysis Plan: CXR worse, but clinically improved. Afebrile, normal WBC. Discussed with ID, continue ceftriaxone/Azithromycin for now. Pulmonary input noted. LFts, CPK trending. Resume IVF. HIV/hep panel neg. Abdominal US noted. DVTPPx lovenox Dispo dc in 24hours if continues to improve with follow up CT chest in 2-3 weeks Discussed with patient and nursing.
[2019-07-03] MEDS: SODIUM CHLORIDE 1,000 ML IV SCH (16:05)
--- NOTE | 2019-07-03 16:19 | PN ---
Progress Note (short form) - Note Progress Note: resting comfortably day #5 antiibotics no fevers! Vital Signs Period Temp Pulse Resp BP Sys/Thakkar Pulse Ox Last 24 Hr 97.9 F-99.0 F 72-111 18-20 104-115/66-78 91-95 cor-rrr lungs decreased bs on the left abd soft,nt ext no edema CBC, BMP 07/02/19 06:00 07/02/19 06:00 Microbiology 06/29/19 04:05 Blood - Peripheral Venous Blood Culture - Preliminary NO GROWTH OBTAINED AFTER 96 HOURS, INCUBATION TO CONTINUE FOR 1 DAYS. 06/29/19 04:05 Blood - Peripheral Venous Blood Culture - Preliminary NO GROWTH OBTAINED AFTER 96 HOURS, INCUBATION TO CONTINUE FOR 1 DAYS. 06/29/19 03:20 Nasopharyngeal Swab Respiratory Virus Panel - Preliminary 06/29/19 06:10 Urine - Urine Clean Catch Legionella Antigen - Final 06/29/19 06:10 Urine - Urine Clean Catch Streptococcus pneumoniae Antigen ( M - Final Current Medications Acetaminophen (Tylenol -) 650 mg PO Q6H PRN PRN Reason: FEVER Last Admin: 07/01/19 20:35 Dose: 650 mg Enoxaparin Sodium (Lovenox -) 40 mg SQ DAILY [facility] Last Admin: 07/02/19 10:08 Dose: 40 mg Azithromycin (Zithromax 500mg Ivpb (Pre-Docked)) 500 mg in 250 mls @ 250 mls/ hr IVPB DAILY [facility] Last Admin: 07/02/19 10:07 Dose: 250 mls/hr Ceftriaxone Sodium 1 gm/ (Dextrose) 50 mls @ 200 mls/hr IVPB DAILY [facility]; Protocol Last Admin: 07/02/19 10:07 Dose: 200 mls/hr Sodium Chloride (Normal Saline -) 1,000 mls @ 75 mls/hr IV ASDIR ELIDA Last Admin: 07/01/19 18:37 Dose: 75 mls/hr cxray left lung infiltrate a/p Legionella pneumonia--improved Group a strep pharyngitis sputum for legionella culture if able continue rocephin/zithromax day #5 have asked patient to start ambulating would observe overnight if stable and afebrile can switch to po zithromax 500 mg daily to complete 10 days total treatment will need f/u chest imaging as outpt should f/u with his PMD
[2019-07-04 08:22] LABS: BASO % 0.8 % (0-2.0); EOS % 3.6 % (0-4.5); HEMATOCRIT 32.6 % (35.4-49); HEMOGLOBIN 10.9 GM/dL (11.7-16.9); LYMPH % 21.4 % (8-40); MCH 28.3 pg (25.7-33.7); MCHC 33.3 g/dl (32.0-35.9); MEAN CELL VOLUME 84.9 fl (80-96); MEAN PLT VOLUME 8.1 fl (7.5-11.1); MONO % 4.9 % (3.8-10.2); NEUT % 69.3 % (42.8-82.8); PLATELET COUNT 356 K/MM3 (134-434); RBC 3.84 M/mm3 (4.00-5.60); WHITE BLOOD COUNT 6.8 K/mm3 (4.0-10.0)
[2019-07-04 09:15] LABS: ALBUMIN 2.3 g/dl (3.4-5.0); BILIRUBIN,TOTAL 0.7 mg/dL (0.2-1); CALCIUM 8.4 mg/dL (8.5-10.1); CREATININE 0.9 mg/dL (0.55-1.3); POTASSIUM 4.6 mmol/L (3.5-5.1); TOT PROT 6.2 g/dl (6.4-8.2)
[2019-07-04 09:54] LABS: ANISOCYTOSIS 0; MACROCYTOSIS 0; PLATELET ESTIMATE NORMAL
[2019-07-04] MEDS ORDERED: cefTRIAXone SODIUM 1 GM VIAL ONE (10:21)
[2019-07-04] MEDS ORDERED: DEXTROSE 5%-WATER - 50 ML IVPB ONE (10:21)
[2019-07-04] MEDS: CEFTRIAXONE 1 GM in DEXTROSE 5%-WATER - 50 ML IVPB SCH (10:22)
[2019-07-04] MEDS: AZITHROMYCIN IVPB 500 MG/250 ML BAG IVPB SCH (10:22)
--- NOTE | 2019-07-04 10:22 | PN ---
Teaching Attending Note Name of Resident: Eddie Vang ATTENDING PHYSICIAN STATEMENT I saw and evaluated the patient. I reviewed the resident's note and discussed the case with the resident. I agree with the resident's findings and plan as documented with exceptions below. SUBJECTIVE: patient seen and examined, no new concerns, doing well, eager to go home. OBJECTIVE: Vital Signs Period Temp Pulse Resp BP Sys/Thakkar Pulse Ox Last 24 Hr 97.9 F-98.2 F 79-111 18-18 111-116/73-78 91-95 Intake & Output 07/01/19 07/02/19 07/03/19 07/04/19 23:59 23:59 23:59 23:59 Intake Total 229 388 9709 800 Output Total 900 500 300 Balance -100 400 700 800 General: sitting in bed in no acute distress CVS:S1S2 regular Chest: few left basilar rales, no wheezing Abdomen:soft, obese, NT Extremities: no edema Home Medications Medication Instructions Recorded Azithromycin 500 mg PO DAILY #5 tablet 07/04/19 Active Medications Acetaminophen (Tylenol -) 650 mg PO Q6H PRN PRN Reason: FEVER Last Admin: 07/01/19 20:35 Dose: 650 mg Enoxaparin Sodium (Lovenox -) 40 mg SQ DAILY [facility] Last Admin: 07/03/19 10:01 Dose: 40 mg Azithromycin (Zithromax 500mg Ivpb (Pre-Docked)) 500 mg in 250 mls @ 250 mls/ hr IVPB DAILY [facility] Last Admin: 07/03/19 10:01 Dose: 250 mls/hr Ceftriaxone Sodium 1 gm/ (Dextrose) 50 mls @ 200 mls/hr IVPB DAILY [facility]; Protocol Last Admin: 07/03/19 10:01 Dose: 200 mls/hr Sodium Chloride (Normal Saline -) 1,000 mls @ 100 mls/hr IV ASDIR [facility] Last Admin: 07/03/19 16:05 Dose: 100 mls/hr Laboratory Results - last 24 hr 07/04/19 07/04/19 06:40 06:40 WBC 6.8 RBC 3.84 L Hgb 10.9 L Hct 32.6 L MCV 84.9 MCH 28.3 MCHC 33.3 RDW 14.0 Plt Count 356 D MPV 8.1 Absolute Neuts (auto) 4.7 Neutrophils % 69.3 Lymphocytes % 21.4 D Monocytes % 4.9 Eosinophils % 3.6 D Basophils % 0.8 Nucleated RBC % 0 Sodium 140 Potassium 4.6 Chloride 108 H Carbon Dioxide 25 Anion Gap 7 L BUN 10.0 Creatinine 0.9 Est GFR (CKD-EPI)AfAm 116.65 Est GFR (CKD-EPI)NonAf 100.64 Random Glucose 88 Calcium 8.4 L Total Bilirubin 0.7 AST 391 H ALT 378 H Alkaline Phosphatase 104 Creatine Kinase 269 Creatine Kinase Index 0.5 CK-MB (CK-2) 1.4 Total Protein 6.2 L Albumin 2.3 L Microbiology 06/29/19 03:20 Nasopharyngeal Swab Respiratory Virus Panel - Final 06/29/19 04:05 Blood - Peripheral Venous Blood Culture - Final NO GROWTH AFTER 5 DAYS INCUBATION 06/29/19 04:05 Blood - Peripheral Venous Blood Culture - Final NO GROWTH AFTER 5 DAYS INCUBATION 06/29/19 06:10 Urine - Urine Clean Catch Legionella Antigen - Final 06/29/19 06:10 Urine - Urine Clean Catch Streptococcus pneumoniae Antigen ( M - Final ASSESSMENT AND PLAN: 48 year old man with no past medical history who presented to the ED with fever , chills, and body aches. -Left lung Legionella Pneumonia with sepsis -Streptococcal pharyngitis -Transaminitis, likely due to Legionella PNA -ANGELA, suspect dehydration -Rhabdomyolysis Plan: Afebrile, normal WBC. ID input noted, transition to Azithromycin for total 10 days. Pulmonary input noted. CPK trending down. LFTs worse, abdominal US/HIV/Hep panel noted. Hold off on d/c and will continue to trend today. Plan for dc in 24 hours if stable from infection/hepatic standpoint. Discussed with patient and nursing.
[2019-07-04] MEDS: ENOXAPARIN NA (PORCINE) 40 MG/0.4 ML DISP.SYRIN SQ SCH (10:23)
--- NOTE | 2019-07-04 12:09 | PN ---
Progress Note (short form) - Note Progress Note: PULMONARY Denies shortness of breath. +nonproductive cough. No fevers or chills. Wants to go home. Vital Signs Period Temp Pulse Resp BP Sys/Thakkar Pulse Ox Last 24 Hr 97.9 F-98.2 F 73-111 18-20 111-118/73-82 91-96 Gen: NAD at rest Heart: RRR Lung: decreased breath sounds at the bases Abd: soft, nontender Ext: no edema CBC, BMP 07/04/19 06:40 07/04/19 06:40 Active Medications Enoxaparin Sodium (Lovenox -) 40 mg SQ DAILY [facility] Last Admin: 07/04/19 10:23 Dose: 40 mg Azithromycin (Zithromax 500mg Ivpb (Pre-Docked)) 500 mg in 250 mls @ 250 mls/ hr IVPB DAILY [facility] Last Admin: 07/04/19 10:22 Dose: 250 mls/hr Ceftriaxone Sodium 1 gm/ (Dextrose) 50 mls @ 200 mls/hr IVPB DAILY [facility]; Protocol Last Admin: 07/04/19 10:22 Dose: 200 mls/hr Sodium Chloride (Normal Saline -) 1,000 mls @ 100 mls/hr IV ASDIR [facility]IDA Last Admin: 07/03/19 16:05 Dose: 100 mls/hr A/P Legionella Pneumonia Sepsis Rhabdomyolysis Acute Kidney Injury Elevated LFTs Anemia - continue antibiotics per ID - O2 as needed - IVF - monitor LFTs - will need outpt f/u of chest imaging to ensure resolution of infiltrates in 6 -8 weeks - DVT prophylaxis
--- NOTE | 2019-07-04 15:18 | PN ---
Progress Note (short form) - Note Progress Note: resting comfortably day #6 antiibotics no fevers! Vital Signs Period Temp Pulse Resp BP Sys/Thakkar Pulse Ox Last 24 Hr 98.1 F-98.5 F 73-84 18-20 111-118/73-82 95-96 cor-rrr lungs clear abd soft,nt, no RUQ tenderness ext no edema CBC, BMP 07/04/19 06:40 07/04/19 06:40 cxray left lung infiltrate Laboratory Tests 06/29/19 06/29/19 06/29/19 03:20 04:00 10:00 Total Bilirubin 2.2 H AST ALT Alkaline Phosphatase Creatine Kinase HIV 1&2 Ag/Ab, 4th Gen Non reactive Group A Strep Rapid Positive 06/29/19 06/30/19 07/01/19 20:05 06:45 07:40 Total Bilirubin AST ALT Alkaline Phosphatase Creatine Kinase 2014 H 1840 H 1047 H HIV 1&2 Ag/Ab, 4th Gen Group A Strep Rapid 07/04/19 06:40 Total Bilirubin 0.7 AST 391 H ALT 378 H Alkaline Phosphatase 104 Creatine Kinase 269 HIV 1&2 Ag/Ab, 4th Gen Group A Strep Rapid a/p Legionella pneumonia--improved day#6 antiiboitics Group a strep pharyngitis now with elevated lfts- ?meds- will d/c rocephin/zithromax repeat lfts and INR tomorrow-consider GI evaluation ?finish treatment with po levaquin based on tomorrow's lfts sputum for legionella culture if able d/w hospitalist
--- NOTE | 2019-07-04 17:19 | PN ---
Physical Exam: SUBJECTIVE: Patient seen and examined at bedside. No complaints. Feels well. OBJECTIVE: Vital Signs Period Temp Pulse Resp BP Sys/Thakkar Pulse Ox Last 24 Hr 98.1 F-98.5 F 73-84 18-20 111-118/73-82 95-96 exam unchanged Gen: comfortable in bed HEENT: NCAT Neck: supple, no jvd, no LAD noted Cardio: rrr, normal s1s2, no mrg Pulm: cta b/l Abd: soft, nontender, nondistended Ext: no edema Laboratory Results - last 24 hr 07/04/19 07/04/19 06:40 06:40 WBC 6.8 RBC 3.84 L Hgb 10.9 L Hct 32.6 L MCV 84.9 MCH 28.3 MCHC 33.3 RDW 14.0 Plt Count 356 D MPV 8.1 Absolute Neuts (auto) 4.7 Neutrophils % 69.3 Neutrophils % (Manual) 62.7 Band Neutrophils % 1.9 Lymphocytes % 21.4 D Lymphocytes % (Manual) 21.6 D Monocytes % 4.9 Monocytes % (Manual) 6 Eosinophils % 3.6 D Eosinophils % (Manual) 1.0 Basophils % 0.8 Basophils % (Manual) 0.0 Myelocytes % (Man) 0 Promyelocytes % (Man) 0 Blast Cells % (Manual) 0 Nucleated RBC % 0 Metamyelocytes 2 D Hypochromia 0 Platelet Estimate Normal Polychromasia 0 Poikilocytosis 0 Anisocytosis 0 Microcytosis 0 Macrocytosis 0 Sodium 140 Potassium 4.6 Chloride 108 H Carbon Dioxide 25 Anion Gap 7 L BUN 10.0 Creatinine 0.9 Est GFR (CKD-EPI)AfAm 116.65 Est GFR (CKD-EPI)NonAf 100.64 Random Glucose 88 Calcium 8.4 L Total Bilirubin 0.7 AST 391 H ALT 378 H Alkaline Phosphatase 104 Creatine Kinase 269 Creatine Kinase Index 0.5 CK-MB (CK-2) 1.4 Total Protein 6.2 L Albumin 2.3 L Active Medications Generic Name Dose Route Start Last Admin Trade Name Freq PRN Reason Stop Dose Admin Enoxaparin Sodium 40 mg 06/29/19 10:00 07/04/19 10:23 Lovenox - SQ 40 mg DAILY ELIDA Administration Azithromycin 500 mg in 250 mls @ 250 mls/hr 06/30/19 10:00 07/04/19 10:22 Zithromax 500mg Ivpb (Pre-Docked) IVPB 250 mls/hr DAILY ELIDA Administration Sodium Chloride 1,000 mls @ 100 mls/hr 07/03/19 15:30 07/03/19 16:05 Normal Saline - IV 100 mls/hr ASDIR ELIDA Administration ASSESSMENT/PLAN: This is a 48 year old man with no past medical history who presented to the ED with fever, chills, and body aches. # Sepsis (fever, tachycardia) secondary to Legionella pneumonia and group A Strep pharyngitis - afebrile overnight - d/c ceftriaxone, azithromycin, IV fluid in setting of elevated lfts. Per ID possibly will start Levaquin - Chest CT shows large area of consolidation in WIL; mild bibasilar atelectasis ; 4mm nodule left lung base; 8mm nodule lateral RLL; exophytic right renal cyst - CXR: progressive L infiltrate and new R basilar atalectasis - #Hepatic transaminitis secondary to Legionella pneumonia - Improving - LFTs elevated today. May switch to Levaquin. F/u ID recs - HIV, hepatitis panel negative -ID on board #Acute kidney injury secondary to dehydration -In setting of Rhabdo - Improved # Rhabdomyolysis - CK < 1000 today Visit type - Emergency Visit Emergency Visit: No - New Patient This patient is new to me today: No - Critical Care Critical Care patient: No ATTENDING PHYSICIAN STATEMENT I saw and evaluated the patient. I reviewed the resident's note and discussed the case with the resident. I agree with the resident's findings and plan as documented. SUBJECTIVE: OBJECTIVE: ASSESSMENT AND PLAN:
[2019-07-05] MEDS: SODIUM CHLORIDE 1,000 ML IV SCH (02:18)
--- NOTE | 2019-07-05 06:46 | PN ---
Physical Exam: SUBJECTIVE: Patient seen and examined OBJECTIVE: Vital Signs Period Temp Pulse Resp BP Sys/Thakkar Pulse Ox Last 24 Hr 98.1 F-98.7 F 73-85 20-20 112-129/70-83 96-96 GENERAL: The patient is awake, alert, and fully oriented, in no acute distress. HEAD: Normal with no signs of trauma. EYES: PERRL, extraocular movements intact, sclera anicteric, conjunctiva clear. No ptosis. ENT: Ears normal, nares patent, oropharynx clear without exudates, moist mucous membranes. NECK: Trachea midline, full range of motion, supple. LUNGS: Breath sounds equal, clear to auscultation bilaterally, no wheezes, no crackles, no accessory muscle use. HEART: Regular rate and rhythm, S1, S2 without murmur, rub or gallop. ABDOMEN: Soft, nontender, nondistended, normoactive bowel sounds, no guarding, no rebound, no hepatosplenomegaly, no masses. EXTREMITIES: 2+ pulses, warm, well-perfused, no edema. NEUROLOGICAL: Cranial nerves II through XII grossly intact. Normal speech, gait not observed. PSYCH: Normal mood, normal affect. SKIN: Warm, dry, normal turgor, no rashes or lesions noted Laboratory Results - last 24 hr 07/04/19 07/04/19 06:40 06:40 WBC 6.8 RBC 3.84 L Hgb 10.9 L Hct 32.6 L MCV 84.9 MCH 28.3 MCHC 33.3 RDW 14.0 Plt Count 356 D MPV 8.1 Absolute Neuts (auto) 4.7 Neutrophils % 69.3 Neutrophils % (Manual) 62.7 Band Neutrophils % 1.9 Lymphocytes % 21.4 D Lymphocytes % (Manual) 21.6 D Monocytes % 4.9 Monocytes % (Manual) 6 Eosinophils % 3.6 D Eosinophils % (Manual) 1.0 Basophils % 0.8 Basophils % (Manual) 0.0 Myelocytes % (Man) 0 Promyelocytes % (Man) 0 Blast Cells % (Manual) 0 Nucleated RBC % 0 Metamyelocytes 2 D Hypochromia 0 Platelet Estimate Normal Polychromasia 0 Poikilocytosis 0 Anisocytosis 0 Microcytosis 0 Macrocytosis 0 Sodium 140 Potassium 4.6 Chloride 108 H Carbon Dioxide 25 Anion Gap 7 L BUN 10.0 Creatinine 0.9 Est GFR (CKD-EPI)AfAm 116.65 Est GFR (CKD-EPI)NonAf 100.64 Random Glucose 88 Calcium 8.4 L Total Bilirubin 0.7 AST 391 H ALT 378 H Alkaline Phosphatase 104 Creatine Kinase 269 Creatine Kinase Index 0.5 CK-MB (CK-2) 1.4 Total Protein 6.2 L Albumin 2.3 L Active Medications Generic Name Dose Route Start Last Admin Trade Name Freq PRN Reason Stop Dose Admin Enoxaparin Sodium 40 mg 06/29/19 10:00 07/04/19 10:23 Lovenox - SQ 40 mg DAILY ELIDA Administration Sodium Chloride 1,000 mls @ 100 mls/hr 07/03/19 15:30 07/05/19 02:18 Normal Saline - IV 100 mls/hr ASDIR ELIDA Administration Active Medications Enoxaparin Sodium (Lovenox -) 40 mg SQ DAILY ELIDA Last Admin: 07/04/19 10:23 Dose: 40 mg Sodium Chloride (Normal Saline -) 1,000 mls @ 100 mls/hr IV ASDIR ELIDA Last Admin: 07/05/19 02:18 Dose: 100 mls/hr ASSESSMENT/PLAN: ATTENDING PHYSICIAN STATEMENT I saw and evaluated the patient. I reviewed the resident's note and discussed the case with the resident. I agree with the resident's findings and plan as documented. SUBJECTIVE: OBJECTIVE: ASSESSMENT AND PLAN:
[2019-07-05 07:35] LABS: ALBUMIN 2.2 g/dl (3.4-5.0); BILIRUBIN,DIRECT 0.2 mg/dL (0.0-0.2); BILIRUBIN,TOTAL 0.5 mg/dL (0.2-1)
[2019-07-05 07:41] LABS: INR 1.17 (0.83-1.09); PROTHROMBIN TIME (PATIENT) 13.8 SEC (9.7-13.0)
[2019-07-05 08:12] LABS: HEMATOCRIT 32.2 % (35.4-49); HEMOGLOBIN 10.9 GM/dL (11.7-16.9); MEAN CELL VOLUME 85.3 fl (80-96); PLATELET COUNT 367 K/MM3 (134-434); RBC 3.77 M/mm3 (4.00-5.60); RDW 14.1 % (11.9-15.9)
[2019-07-05] MEDS: ENOXAPARIN NA (PORCINE) 40 MG/0.4 ML DISP.SYRIN SQ SCH ×2 (10:00→10:40)
[2019-07-05 11:45] VITALS: BP 140/86; PULSE 90; TEMP 98
--- NOTE | 2019-07-05 13:37 | DS ---
Physical Exam: SUBJECTIVE: Patient seen and examined at bedside. No complaints. Feels well. Pt wants to leave the hospital. OBJECTIVE: Vital Signs Period Temp Pulse Resp BP Sys/Thakkar Pulse Ox Last 24 Hr 98.0 F-98.7 F 80-90 15-20 112-140/70-86 96-97 PHYSICAL EXAM exam unchanged Gen: comfortable in bed HEENT: NCAT Neck: supple, no jvd, no LAD noted Cardio: rrr, normal s1s2, no mrg Pulm: cta b/l Abd: soft, nontender, nondistended Ext: no edema LABS Laboratory Results - last 24 hr 07/05/19 07/05/19 07/05/19 06:20 06:20 06:20 WBC 7.0 RBC 3.77 L Hgb 10.9 L Hct 32.2 L MCV 85.3 MCH 29.0 MCHC 34.0 RDW 14.1 Plt Count 367 MPV 8.0 PT with INR 13.80 H INR 1.17 H Total Bilirubin 0.5 Direct Bilirubin 0.2 AST 289 H ALT 391 H Alkaline Phosphatase 106 Total Protein 6.0 L Albumin 2.2 L HOSPITAL COURSE: Date of Admission:06/29/19 Date of Discharge: 07/05/19 Mr. Rivera is a 48 y/o M with no PMH who presented to the ED with complaint of fever, chills, and aches. He was found to have Legionella pneumonia and Rhabdomyolysis with ANGELA. These all improved with Rocephin/Azithromycin. However , he developed transaminitis during his treatment course, for which the etiology was unclear. On day 6 of his hospital stay, the patient stated he no longer wanted to stay in the hospital and wanted to leave [facility]. Risks were explained and discussed in detail. All questions were answered. Pt was instructed to return to the hospital if he had a change in status. He was given a prescription for Levaquin and instructions to follow up with the [facility] resident clinic. Pt stated understanding and assured compliance. Minutes to complete discharge: 30 Discharge Summary Reason For Visit: PNEUMONIA INVO;VING LEFT LUNG,FEVER Condition: Stable - Instructions Diet, Activity, Other Instructions: You were in the hospital because of a lung infection. MEDICATIONS; Antibiotic Levaquin 500 mg daily for 5 more days You need to follow up with the following doctors within 1-2 weeks: Primary care doctor in 1 week Pulmonology, Dr. Chand in 1-2 weeks Infectious Diseases, Dr. Ramirez If you do not have a primary care doctor, you can see Dr. Vang in the [facility] resident clinic on to have your liver function tests repeated. You will need to get a follow up CT scan of the chest in 2-3 weeks. You can speak to your autism teacher about this. You need to take Levaquin 500 mg daily for additional 5 days Your liver tests were noted abnormal, likely from the infection, but avoid tylenol more than 2 g in 24 hours and have follow up blood work with your doctor in 1 week. If you have new symptoms, fevers, change in color or character of sputum, worsening breathing, pain or any new concerns or if your symptoms get worse, call 911 or return to the emergency department. Referrals: Damian Sibley MD [Staff Physician] - Bhupendra Chand MD [Staff Physician] - Laila Ramirez MD [Staff Physician] - Eddie Vang RES [Resident] - Disposition: AGAINST MEDICAL ADVICE - Home Medications Comprehensive Discharge Medication List: Ambulatory Orders levoFLOXacin [Levaquin -] 500 mg PO DAILY #5 tablet 07/05/19 This patient is new to me today: No Emergency Visit: No Critical Care patient: No - Discharge Referral [facility]erred to [facility] No ATTENDING PHYSICIAN STATEMENT I saw and evaluated the patient. I reviewed the resident's note and discussed the case with the resident. I agree with the resident's findings and plan as documented. SUBJECTIVE: OBJECTIVE: ASSESSMENT AND PLAN:
== END 2019-07-05 11:53 | disposition left against medical advice (07) | DRG 682 ==
LOC: JER 02:45 → JERBED 05:18 → J6S 23:17
PROVIDERS: ADMIT Internal Medicine; ATTEND Hospitalist
DX: N17.9 Acute kidney failure, unspecified (principal); A48.1 Legionnaires' disease; M62.82 Rhabdomyolysis; J98.11 Atelectasis; J02.0 Streptococcal pharyngitis; Z68.31 Body mass index [BMI] 31.0-31.9, adult; E66.9 Obesity, unspecified; R09.02 Hypoxemia; K76.0 Fatty (change of) liver, not elsewhere classified; E86.0 Dehydration; R74.8 Abnormal levels of other serum enzymes; N28.1 Cyst of kidney, acquired
CPT/HCPCS: 36415; 71045-TC-FY; 71046-TC-FY; 71250-TC; 76705-TC; 80048; 80053; 80074; 80076; 81003; 82248; 82550; 82553; 83605; 83735; 84100; 84300; 85025; 85027; 85610; 85651; 85730; 86140; 87040; 87254; 87389; 87804; 87880; 87899; 93005; 93010; 94761; 99284-25; J0131; J7030